=== PATIENT | female | born 1935 | race Caucasian/White ===

== ENCOUNTER 2017-07-10 20:54 | Emergency (ER) | payer MEDICARE, BC ==
[2017-07-10 22:01] LABS: BASO % 0.4 % (0.0-1.0); EOS # 0.3 10^3/uL (0.0-0.50); EOS % 2.7 % (0.0-3.0); HEMATOCRIT 39.1 % (36.0-47.0); HEMOGLOBIN 12.8 g/dl (12.0-15.5); IMMATURE GRANULOCYTE % 0.4 % (0-3.0); LYMPH # 3.2 10^3/uL (1.5-4.5); LYMPH % 34.7 % (24.0-44.0); MEAN CORPUSCULAR HEMOGLOBIN 27.5 pg (27.0-33.0); MEAN CORPUSCULAR HGB CONC 32.7 g/dl (32.0-36.5); MEAN CORPUSCULAR VOLUME 84.1 fl (80.0-96.0); MONO # 0.7 10^3/uL (0.0-0.8); MONO % 7.6 % (0.0-5.0); NEUTROPHILS % 54.2 % (36.0-66.0); PLATELET COUNT, AUTOMATED 236 10^3/uL (150-450); RED BLOOD COUNT 4.65 10^6/uL (4.00-5.40); RED CELL DISTRIBUTION WIDTH 13.2 % (11.5-14.5); WHITE BLOOD COUNT 9.2 10^3/uL (4.0-10.0)
[2017-07-10 22:11] LABS: INR 0.98; PROTHROMBIN TIME 13.1 SECONDS (12.4-14.5)
[2017-07-10 22:12] LABS: PARTIAL THROMBOPLASTIN TIME 33.8 SECONDS (26.8-37.9)
[2017-07-10 22:25] LABS: ALBUMIN 3.7 GM/DL (3.2-5.2); ALKALINE PHOSPHATASE 67 U/L (45-117); ALT/SGPT 30 U/L (12-78); ANION GAP 8 MEQ/L (8-16); AST/SGOT 20 U/L (7-37); BILIRUBIN,DIRECT < 0.1 MG/DL (0.0-0.2); BILIRUBIN,TOTAL 0.2 MG/DL (0.2-1.0); BLOOD UREA NITROGEN 19 MG/DL (7-18); CALCIUM LEVEL 8.6 MG/DL (8.8-10.2); CARBON DIOXIDE LEVEL 26 MEQ/L (21-32); CHLORIDE LEVEL 108 MEQ/L (98-107); CPK CREATINE PHOSPHOKINASE 87 U/L (26-192); CREATININE FOR GFR 1.03 MG/DL (0.55-1.30); FREE T4 1.12 NG/DL (0.76-1.46); GLUCOSE, FASTING 102 MG/DL (70-100); LIPASE 179 U/L (73-393); SODIUM LEVEL 142 MEQ/L (136-145); TOTAL PROTEIN 8.3 GM/DL (6.4-8.2); TROPONIN I < 0.02 NG/ML (< 0.10)
[2017-07-10] MEDS: MAALOX 30 ML SUSP *UDC PO (22:27)
[2017-07-10] MEDS: ASPIRIN 81 MG CHEW TABLET PO (22:27)
[2017-07-10 22:31] LABS: CK-MB VALUE MASS 1.5 NG/ML (<3.6); MB/CK RELATIVE INDEX 1.72 (< OR =4)
[2017-07-11] MEDS: NS 500 ML IV (04:15)
[2017-07-11 04:37] LABS: CK-MB VALUE MASS 1.2 NG/ML (<3.6); CPK CREATINE PHOSPHOKINASE 63 U/L (26-192); TROPONIN I < 0.02 NG/ML (< 0.10)
== END 2017-07-11 07:12 | disposition home or self-care (01) ==
LOC: M ED 20:54
DX: R07.9 Chest pain, unspecified (principal); R94.31 Abnormal electrocardiogram [ECG] [EKG]; I25.10 Atherosclerotic heart disease of native coronary artery without angina pectoris; K21.9 Gastro-esophageal reflux disease without esophagitis; Z87.891 Personal history of nicotine dependence; Z79.899 Other long term (current) drug therapy; Z88.8 Allergy status to other drugs, medicaments and biological substances
CPT/HCPCS: 71046

== ENCOUNTER 2018-05-09 14:18 | Emergency (ER) | payer MEDICARE, BC ==
[~2018-05-09] VITALS: Ht 147.3 cm; Wt 63.5 kg
[~2018-05-09 14:18] MED LIST: AMLO5TAB6; BISOPRL/HCTZ; KLOR10TA76; OMEP20CA3; PARO5TAB; PRAV20TA2; VALS1TAB68; ZETI10TA30 PO
[2018-05-09] MEDS ORDERED: BISOPRL/HCTZ (14:31)
[2018-05-09 15:53] LABS: BASO % 0.2 % (0.0-1.0); EOS # 0.4 10^3/uL (0.0-0.50); EOS % 3.9 % (0.0-3.0); HEMATOCRIT 41.7 % (36.0-47.0); HEMOGLOBIN 13.4 g/dl (12.0-15.5); LYMPH # 2.2 10^3/uL (1.5-4.5); LYMPH % 22.9 % (24.0-44.0); MEAN CORPUSCULAR HEMOGLOBIN 26.9 pg (27.0-33.0); MEAN CORPUSCULAR HGB CONC 32.1 g/dl (32.0-36.5); MEAN CORPUSCULAR VOLUME 83.6 fl (80.0-96.0); MONO # 0.7 10^3/uL (0.0-0.8); MONO % 7.2 % (0.0-5.0); NEUTROPHILS # 6.2 10^3/uL (1.8-7.7); NEUTROPHILS % 65.3 % (36.0-66.0); PLATELET COUNT, AUTOMATED 297 10^3/uL (150-450); RED BLOOD COUNT 4.99 10^6/uL (4.00-5.40); WHITE BLOOD COUNT 9.5 10^3/uL (4.0-10.0)
[2018-05-09] MEDS ORDERED: MORPHINE 2 MG/ML 1ML SYRINGE (J2270) IV ONE (16:15)
[2018-05-09 16:21] LABS: BLOOD UREA NITROGEN 17 MG/DL (7-18); CALCIUM LEVEL 9.1 MG/DL (8.8-10.2); CARBON DIOXIDE LEVEL 31 MEQ/L (21-32); CHLORIDE LEVEL 103 MEQ/L (98-107); CK-MB VALUE MASS < 1.0 NG/ML (<3.6); CPK CREATINE PHOSPHOKINASE 42 U/L (26-192); CREATININE FOR GFR 0.76 MG/DL (0.55-1.30); GLOMERULAR FILTRATION RATE > 60.0 (>32); GLUCOSE, FASTING 100 MG/DL (70-100); MB/CK RELATIVE INDEX 2.38 (< OR =4); POTASSIUM SERUM 3.7 MEQ/L (3.5-5.1); SODIUM LEVEL 139 MEQ/L (136-145); TROPONIN I < 0.02 NG/ML (< 0.10)
[2018-05-09] MEDS ORDERED: ISOVUE-370 76% 125ML VIAL (Q9967 PER ML) As Ordered ONE (16:30)
--- NOTE | 2018-05-09 17:36 | REP ---
Clinical: Chest pain radiating to the back. Technique: Chest CT using angiographic technique including multiplanar re-formations with 100 ml Isovue 370 intravenous contrast material. Findings: Thoracic aorta demonstrates mild atherosclerotic changes without aneurysm or dissection. Pulmonary arteries are intact without evidence for pulmonary embolus. Heart and pericardium are within normal limits. The bilateral lung cummings demonstrate advanced COPD/emphysematous changes. No consolidation, obvious nodule or mass lesion. No pleural effusion. No pneumothorax. No obvious adenopathy. Musculoskeletal structures demonstrate age-related osteopenia and degenerative changes along with vertebral body hemangioma at T9. Impression: 1. No evidence for thoracic aortic aneurysm or dissection. 2. No evidence for pulmonary embolus. 3. Advanced COPD/emphysematous changes. Electronically Signed by Tristin Mayes MD 05/09/2018 05:28 P
--- NOTE | 2018-05-09 17:39 | REP ---
Clinical: Chest and abdominal pain radiating to the back. Technique: Axial contrast enhanced images of the abdomen including multiplanar re-formations using angiographic technique with 100 ml Isovue 370 intravenous contrast material. Findings: Abdominal aorta demonstrates mild atherosclerotic changes without aneurysm or dissection. Celiac axis, superior mesenteric artery, inferior mesenteric artery, solitary bilateral renal arteries and lumbar arteries demonstrate normal perfusion. Liver, spleen, pancreas, bilateral adrenal glands and kidneys are relatively normal. The hypodensities are identified measuring up to 1.6 cm and compatible with cysts. Visualized enteric system without obstruction or acute inflammatory process. No ascites. No free air. No adenopathy. Osseous structures demonstrate age-related degenerative changes. Impression: 1. Atherosclerotic changes to the aorta without aneurysm or dissection. 2. Few bilateral renal hypodensities most compatible with cysts. 3. No acute abdominal pathology otherwise appreciated. Electronically Signed by Tristin Mayes MD 05/09/2018 05:31 P
[2018-05-09] MEDS ORDERED: ALPR0.25 PO (18:01)
[2018-05-09 18:22] VITALS: BP 152/70
--- NOTE | 2018-05-10 10:17 | ECGEPIP ---
Stationary ECG Study [facility] - ED Test Date: 2018-05-09 Pat Name: KAREN COBIAN Department: Room: - Gender: F Project Development Director: ct : 1935 Requested By: GUILLERMINA AGUILAR Order Number: [id number] Reading MD: Jodi Quinonez Measurements Intervals [place] Rate: 76 P: 98 VA: 193 QRS: -42 QRSD: 93 T: 61 QT: 370 QTc: 418 Interpretive Statements SINUS RHYTHM LOW QRS VOLTAGE IN EXTREMITY LEADS SEPTAL MYOCARDIAL INFARCTION, PROBABLY OLD INFERIOR MYOCARDIAL INFARCTION, PROBABLY OLD INCREASED RATE 07/11/17 Electronically Signed On 05-10-2018 10:17:40 EDT by Jodi Quinonez
== END 2018-05-09 18:23 | disposition home or self-care (01) ==
LOC: M ED 14:18
DX: M62.830 Muscle spasm of back (principal); J44.9 Chronic obstructive pulmonary disease, unspecified; Z79.899 Other long term (current) drug therapy; Z88.8 Allergy status to other drugs, medicaments and biological substances; Z87.891 Personal history of nicotine dependence
CPT/HCPCS: 71275; 74175; 80048; 82550; 82553; 84484; 85025; 93005; 96374; 99284; J2270; Q9967

== ENCOUNTER 2019-02-16 05:08 | Emergency (ER) | payer MEDICARE, BC ==
[~2019-02-16] VITALS: Ht 142.2 cm; Wt 73.6 kg
[~2019-02-16 05:08] MED LIST changes: +ALPR0.25 PO; +OMEP-172; -OMEP20CA3; +ZETI10TA16 PO; -ZETI10TA30 PO
[2019-02-16] MEDS ORDERED: METOCLOPRAMIDE INJ 10MG/2ML VIAL (J2765) As Ordered ONE (05:22)
[2019-02-16] MEDS ORDERED: BISO5TAB2 (05:34)
[2019-02-16] MEDS ORDERED: LOSA100T50 (05:34)
[2019-02-16] MEDS ORDERED: HALOPERIDOL 5 MG/ML VIAL (J1630) IV STA (05:48)
[2019-02-16] MEDS ORDERED: diphenhydrAMINE INJ 50MG/ML VIAL (J1200) IV STA (05:48)
[2019-02-16] MEDS ORDERED: METOCLOPRAMIDE INJ 10MG/2ML VIAL (J2765) IV ONE (06:00)
[2019-02-16] MEDS ORDERED: NS 500 ML IV ONE (06:00)
[2019-02-16 06:16] LABS: BASO # 0.1 10^3/uL (0.0-0.2); BASO % 0.4 % (0.0-1.0); EOS # 0.2 10^3/uL (0.0-0.5); EOS % 1.8 % (0.0-3.0); HEMATOCRIT 39.6 % (36.0-47.0); HEMOGLOBIN 12.2 g/dl (12.0-15.5); LYMPH # 4.2 10^3/uL (1.5-5.0); LYMPH % 37.2 % (24.0-44.0); MEAN CORPUSCULAR HEMOGLOBIN 26.2 pg (27.0-33.0); MEAN CORPUSCULAR HGB CONC 30.8 g/dl (32.0-36.5); MEAN CORPUSCULAR VOLUME 85.2 fl (80.0-96.0); MONO # 0.7 10^3/uL (0.0-0.8); MONO % 6.3 % (0.0-5.0); NEUTROPHILS % 53.8 % (36.0-66.0); PLATELET COUNT, AUTOMATED 265 10^3/uL (150-450); RED BLOOD COUNT 4.65 10^6/uL (4.00-5.40); WHITE BLOOD COUNT 11.2 10^3/uL (4.0-10.0)
[2019-02-16 06:43] LABS: ALBUMIN 3.2 GM/DL (3.2-5.2); ALT/SGPT 16 U/L (12-78); BILIRUBIN,DIRECT 0.1 MG/DL (0.0-0.2); BILIRUBIN,TOTAL 0.2 MG/DL (0.2-1.0); BLOOD UREA NITROGEN 17 MG/DL (7-18); CALCIUM LEVEL 8.6 MG/DL (8.8-10.2); CARBON DIOXIDE LEVEL 25 MEQ/L (21-32); CHLORIDE LEVEL 104 MEQ/L (98-107); CREATININE FOR GFR 0.86 MG/DL (0.55-1.30); GLOMERULAR FILTRATION RATE > 60.0 (>32); GLUCOSE, FASTING 119 MG/DL (70-100); LIPASE 115 U/L (73-393); POTASSIUM SERUM 3.5 MEQ/L (3.5-5.1); SODIUM LEVEL 138 MEQ/L (136-145); TOTAL PROTEIN 6.8 GM/DL (6.4-8.2)
[2019-02-16] MEDS ORDERED: REGL10TA6 PO (06:51)
[2019-02-16 07:24] VITALS: BP 139/65
--- NOTE | 2019-02-16 07:26 | REPVR ---
PROCEDURE INFORMATION: Exam: CT Head Without Contrast Exam date and time: 02/16/2019 6:10 AM Age: 83 years old Clinical indication: Dizziness TECHNIQUE: Imaging protocol: Computed tomography of the head without contrast. Radiation optimization: All CT scans at this facility use at least one of these dose optimization techniques: automated exposure control; mA and/or kV adjustment per patient size (includes targeted exams where dose is matched to clinical indication); or iterative reconstruction. COMPARISON: No relevant prior studies available. FINDINGS: Brain: There is mild, diffuse parenchymal volume loss. There is mild diffuse heterogeneity of the white matter attenuation, consistent with chronic white matter ischemic changes. There is no evidence of intracranial hemorrhage. The cortical/white matter interfaces are preserved throughout the brain. Ventricles: The ventricular system demonstrates mild diffuse compensatory enlargement. Bones/joints: No acute fractures of the skull are identified. Sinuses: The visualized paranasal sinuses are clear. Mastoid air cells: The mastoid air cells are clear. Soft tissues: The soft tissues appear unremarkable. Vasculature: Atherosclerotic calcifications are seen in the cerebral arteries at the skull base. IMPRESSION: 1. Age-appropriate, mild diffuse volume loss. 2. No evidence of acute infarct or hemorrhage. Electronically signed by: Radha Cuevas On 02/16/2019 07:26:21 AM
--- NOTE | 2019-02-16 09:08 | ECGEPIP ---
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
== END 2019-02-16 07:28 | disposition home or self-care (01) ==
LOC: M ED 05:08
DX: R42 Dizziness and giddiness (principal); R11.10 Vomiting, unspecified; I10 Essential (primary) hypertension; K21.9 Gastro-esophageal reflux disease without esophagitis; F41.9 Anxiety disorder, unspecified; F32.9 Major depressive disorder, single episode, unspecified; Z87.891 Personal history of nicotine dependence; Z79.899 Other long term (current) drug therapy; Z88.8 Allergy status to other drugs, medicaments and biological substances
CPT/HCPCS: 70450; 80048; 80076; 83690; 85025; 93005; 96374; 96375; 99284; J1200; J1630; J2765

== ENCOUNTER 2021-07-09 17:11 | Inpatient (IN) | payer MEDICARE, BC ==
[~2021-07-09] VITALS: Ht 147.3 cm; Wt 62.5 kg
[~2021-07-09 17:11] MED LIST changes: +AMLO1TAB24 PO; -AMLO5TAB6; +BISO1TAB18 PO; -KLOR10TA76; +LOSA100T45 PO; -OMEP-172; +OMEP1CAP73 PO; +POTA-136 PO; -PRAV20TA2; +PRAV20TA2 PO; +REGL10TA6 PO
[2021-07-09 19:01] LABS: VENOUS BASE EXCESS -0.8 (-2.0-2.0); VENOUS O2 SATURATION 69.1 % (60.0-80.0); VENOUS PARTIAL PRESSURE CO2 46.2 mmHg (38.0-50.0); VENOUS PARTIAL PRESSURE O2 38.2 mmHg (30.0-50.0); VENOUS PH 7.352 UNITS (7.330-7.430); VENOUS STANDARD HCO3 23.1 MEQ/L; VENOUS TOTAL CO2 26.5 MEQ/L (24.0-28.0)
[2021-07-09 19:14] LABS: BASO % 0.5 % (0.0-1.0); EOS # 0.2 10^3/uL (0.0-0.5); HEMATOCRIT 39.2 % (36.0-47.0); HEMOGLOBIN 12.5 g/dl (12.0-15.5); LYMPH # 2.9 10^3/uL (1.5-5.0); LYMPH % 35.8 % (24.0-44.0); MEAN CORPUSCULAR HEMOGLOBIN 27.1 pg (27.0-33.0); MEAN CORPUSCULAR HGB CONC 31.9 g/dl (32.0-36.5); MEAN CORPUSCULAR VOLUME 84.8 fl (80.0-96.0); MONO # 0.6 10^3/uL (0.0-0.8); MONO % 7.6 % (2.0-8.0); NEUTROPHILS # 4.3 10^3/uL (1.5-8.5); NEUTROPHILS % 53.6 % (36.0-66.0); PLATELET COUNT, AUTOMATED 281 10^3/uL (150-450); RED BLOOD COUNT 4.62 10^6/uL (4.00-5.40); WHITE BLOOD COUNT 8.1 10^3/uL (4.0-10.0)
[2021-07-09 19:15] LABS: CK-MB VALUE MASS 1.1 NG/ML (<3.6); MB/CK RELATIVE INDEX 3.14 (< OR =4)
[2021-07-09 19:22] LABS: ALBUMIN 3.5 GM/DL (3.2-5.2); BILIRUBIN,DIRECT 0.2 MG/DL (0.0-0.2); BILIRUBIN,TOTAL 0.4 MG/DL (0.2-1.0); CALCIUM LEVEL 8.8 MG/DL (8.8-10.2); CREATININE FOR GFR 0.95 MG/DL (0.55-1.30); GLOMERULAR FILTRATION RATE 59.8 (>32); POTASSIUM SERUM 4.1 MEQ/L (3.5-5.1); THYROID STIMULATING HORMONE 2.92 uIU/ML (0.358-3.740); TOTAL PROTEIN 7.1 GM/DL (6.4-8.2)
[2021-07-09 19:28] LABS: INR 1.06; PROTHROMBIN TIME 14.2 SECONDS (12.7-14.5)
[2021-07-09 19:29] LABS: PARTIAL THROMBOPLASTIN TIME 32.8 SECONDS (25.9-37.0)
[2021-07-09] MEDS ORDERED: MOM 30ML SUSPENSION UDC PO PRN (21:30)
[2021-07-09] MEDS ORDERED: MAALOX 30 ML SUSP *UDC PO PRN (21:30)
[2021-07-09] MEDS ORDERED: PARO10TA3 PO (21:33)
[2021-07-09] MEDS: FUROSEMIDE 40MG/4ML VIAL (J1940) IV SCH (21:35)
[2021-07-09] MEDS ORDERED: med rec comment (21:35)
[2021-07-09] MEDS ORDERED: ISOVUE-370 76% 100ML VIAL As Ordered ONE (21:38)
[2021-07-09] MEDS ORDERED: HOME MED LIST COMPLETE! XX SCH (21:40)
[2021-07-09 23:33] LABS: CK-MB VALUE MASS < 1.0 NG/ML (<3.6); CPK CREATINE PHOSPHOKINASE 35 U/L (26-192); MB/CK RELATIVE INDEX 2.86 (< OR =4)
[2021-07-09] MEDS: APIXABAN 5 MG TAB (ELIQUIS) PO SCH (23:34)
[2021-07-10] MEDS ORDERED: predniSONE 20 MG TAB PO SCH (00:20)
[2021-07-10] MEDS ORDERED: REMDESIVIR 200 MG in NS 250 ML IV ONE ×2 (03:00→10:05)
[2021-07-10] MEDS ORDERED: SODIUM CHLORIDE 0.9% INJ 10 ML SYR IV ONE ×2 (05:00→12:05)
[2021-07-10 07:29] LABS: BASO # 0.1 10^3/uL (0.0-0.2); BASO % 0.5 % (0.0-1.0); EOS # 0.2 10^3/uL (0.0-0.5); EOS % 1.7 % (0.0-3.0); HEMATOCRIT 38.9 % (36.0-47.0); HEMOGLOBIN 12.4 g/dl (12.0-15.5); LYMPH # 4.6 10^3/uL (1.5-5.0); LYMPH % 41.7 % (24.0-44.0); MEAN CORPUSCULAR HEMOGLOBIN 27.1 pg (27.0-33.0); MEAN CORPUSCULAR HGB CONC 31.9 g/dl (32.0-36.5); MEAN CORPUSCULAR VOLUME 85.1 fl (80.0-96.0); MONO # 0.8 10^3/uL (0.0-0.8); MONO % 7.4 % (2.0-8.0); NEUTROPHILS # 5.3 10^3/uL (1.5-8.5); NEUTROPHILS % 48.3 % (36.0-66.0); PLATELET COUNT, AUTOMATED 281 10^3/uL (150-450); RED BLOOD COUNT 4.57 10^6/uL (4.00-5.40); WHITE BLOOD COUNT 10.9 10^3/uL (4.0-10.0)
[2021-07-10 08:19] LABS: ALBUMIN 3.3 GM/DL (3.2-5.2); BILIRUBIN,TOTAL 0.3 MG/DL (0.2-1.0); CALCIUM LEVEL 9.3 MG/DL (8.8-10.2); CREATININE FOR GFR 0.95 MG/DL (0.55-1.30); GLOMERULAR FILTRATION RATE 59.8 (>32); MAGNESIUM LEVEL 1.9 MG/DL (1.8-2.4); TOTAL PROTEIN 6.9 GM/DL (6.4-8.2)
[2021-07-10] MEDS ORDERED: HYDROCHLOROthiazide 6.25MG PER 1/4TAB PO SCH (09:00)
[2021-07-10] MEDS ORDERED: LOSARTAN 50MG TABLET PO SCH (09:00)
[2021-07-10] MEDS ORDERED: bisoproloL fumarate 5 MG TAB PO SCH (09:00)
[2021-07-10] MEDS ORDERED: amLODIPine 5 MG TAB PO SCH (09:00)
[2021-07-10] MEDS ORDERED: POTASSIUM CHLORIDE 10MEQ SR TABLET PO SCH (09:00)
[2021-07-10] MEDS ORDERED: CARVedilol 12.5 MG TAB PO SCH (10:00)
[2021-07-10] MEDS: APIXABAN 5 MG TAB (ELIQUIS) PO SCH ×2 (10:34→22:38)
[2021-07-10] MEDS: PARoxetine 10MG TABLET PO SCH (10:35)
[2021-07-10] MEDS: PRAVASTATIN 20 MG TAB PO SCH (10:35)
[2021-07-10] MEDS: EZETIMIBE 10MG TABLET (ZETIA) PO SCH (10:35)
[2021-07-10] MEDS: OMEPRAZOLE 20MG CAP PO SCH (10:35)
[2021-07-10] MEDS: FUROSEMIDE 40MG/4ML VIAL (J1940) IV SCH ×2 (10:35→17:41)
[2021-07-10] MEDS: CARVedilol 12.5 MG TAB PO SCH ×2 (11:15→22:39)
[2021-07-10] MEDS: MIDODRINE 5 MG TAB PO SCH ×2 (12:38→16:00)
[2021-07-10 16:50] VITALS: BP 143/73
[2021-07-10 19:00] VITALS: O2SAT 94
[2021-07-10 20:00] VITALS: BP 119/65; O2SAT 94
[2021-07-10 21:00] VITALS: O2SAT 94
[2021-07-10 22:00] VITALS: O2SAT 92
[2021-07-10 23:00] VITALS: O2SAT 94
[2021-07-11] VITALS (28 sets, daily range): BP systolic 89–126; BP diastolic 50–74; O2SAT 89–98
[2021-07-11] MEDS ORDERED: REMDESIVIR 100 MG in NS 250 ML IV SCH (03:00)
[2021-07-11] MEDS ORDERED: SODIUM CHLORIDE 0.9% INJ 10 ML SYR IV SCH (04:00)
[2021-07-11] MEDS ORDERED: DIGOXIN INJ 0.5 MG/2 ML AMP (J1160) IV STA (07:16)
[2021-07-11] MEDS ORDERED: AMIODARONE 150MG/3ML INJ (J0282) IVP STA (08:03)
[2021-07-11] MEDS ORDERED: AMIODARONE HCL 150 MG in IV 1 EA IV ONE (08:10)
[2021-07-11] MEDS: MIDODRINE 5 MG TAB PO SCH ×3 (08:51→18:06)
[2021-07-11] MEDS: PARoxetine 10MG TABLET PO SCH (08:52)
[2021-07-11] MEDS: APIXABAN 5 MG TAB (ELIQUIS) PO SCH ×2 (08:52→21:26)
[2021-07-11] MEDS: OMEPRAZOLE 20MG CAP PO SCH (08:52)
[2021-07-11] MEDS: EZETIMIBE 10MG TABLET (ZETIA) PO SCH (08:52)
[2021-07-11] MEDS: PRAVASTATIN 20 MG TAB PO SCH (08:53)
[2021-07-11] MEDS: REMDESIVIR 100 MG in NS 250 ML IV SCH (08:54)
[2021-07-11] MEDS: SODIUM CHLORIDE 0.9% INJ 10 ML SYR IV SCH (10:20)
[2021-07-11] MEDS: CARVedilol 6.25 MG TAB PO SCH ×2 (12:28→21:27)
[2021-07-11] MEDS: ALPRAZolam 0.5 MG TAB PO PRN (13:06)
[2021-07-11] MEDS: LEVALBUTEROL 1.25 MG/0.5 ML CONCENTRATE NEB INH PRN (18:06)
[2021-07-11] MEDS: LEVALBUTEROL 1.25 MG/0.5 ML CONCENTRATE NEB INH SCH ×2 (21:02→23:35)
[2021-07-12] VITALS (11 sets, daily range): BP systolic 93–126; BP diastolic 50–65; O2SAT 93–96
[2021-07-12] MEDS: LEVALBUTEROL 1.25 MG/0.5 ML CONCENTRATE NEB INH SCH ×5 (03:27→20:00)
[2021-07-12] MEDS ORDERED: DIGOXIN INJ 0.5 MG/2 ML AMP (J1160) IV ONE (07:35)
[2021-07-12] MEDS ORDERED: MIDODRINE 5 MG TAB PO ONE (08:00)
[2021-07-12] MEDS: EZETIMIBE 10MG TABLET (ZETIA) PO SCH (08:10)
[2021-07-12] MEDS: PRAVASTATIN 20 MG TAB PO SCH (08:10)
[2021-07-12] MEDS: OMEPRAZOLE 20MG CAP PO SCH (08:10)
[2021-07-12 08:11] LABS: BASO % 0.3 % (0.0-1.0); EOS # 0.3 10^3/uL (0.0-0.5); EOS % 3.5 % (0.0-3.0); HEMATOCRIT 40.4 % (36.0-47.0); HEMOGLOBIN 12.7 g/dl (12.0-15.5); LYMPH # 3.3 10^3/uL (1.5-5.0); MEAN CORPUSCULAR HEMOGLOBIN 26.7 pg (27.0-33.0); MEAN CORPUSCULAR HGB CONC 31.4 g/dl (32.0-36.5); MEAN CORPUSCULAR VOLUME 84.9 fl (80.0-96.0); MONO # 0.8 10^3/uL (0.0-0.8); MONO % 8.2 % (2.0-8.0); NEUTROPHILS % 52.7 % (36.0-66.0); PLATELET COUNT, AUTOMATED 287 10^3/uL (150-450); RED BLOOD COUNT 4.76 10^6/uL (4.00-5.40); WHITE BLOOD COUNT 9.5 10^3/uL (4.0-10.0)
[2021-07-12] MEDS: PARoxetine 10MG TABLET PO SCH (08:11)
[2021-07-12] MEDS: APIXABAN 5 MG TAB (ELIQUIS) PO SCH ×2 (08:11→21:06)
[2021-07-12] MEDS: REMDESIVIR 100 MG in NS 250 ML IV SCH (08:12)
[2021-07-12] MEDS: CARVedilol 6.25 MG TAB PO SCH ×2 (08:27→21:06)
[2021-07-12 08:33] LABS: BLOOD UREA NITROGEN 30 MG/DL (7-18); CALCIUM LEVEL 9.4 MG/DL (8.8-10.2); CARBON DIOXIDE LEVEL 31 MEQ/L (21-32); CHLORIDE LEVEL 103 MEQ/L (98-107); CREATININE FOR GFR 0.93 MG/DL (0.55-1.30); GLOMERULAR FILTRATION RATE > 60.0 (>32); GLUCOSE, FASTING 91 MG/DL (70-100); POTASSIUM SERUM 3.9 MEQ/L (3.5-5.1); SODIUM LEVEL 142 MEQ/L (136-145)
[2021-07-12] MEDS: SODIUM CHLORIDE 0.9% INJ 10 ML SYR IV SCH (09:41)
[2021-07-12] MEDS: MIDODRINE 5 MG TAB PO SCH (16:57)
[2021-07-12] MEDS: LEVALBUTEROL 1.25 MG/0.5 ML CONCENTRATE NEB INH PRN (21:20)
[2021-07-13] VITALS: O2SAT 94
[2021-07-13] MEDS: LEVALBUTEROL 1.25 MG/0.5 ML CONCENTRATE NEB INH SCH ×6 (01:15→21:21)
[2021-07-13 04:33] VITALS: BP 116/63
[2021-07-13 07:14] LABS: BASO % 0.2 % (0.0-1.0); EOS # 0.3 10^3/uL (0.0-0.5); EOS % 3.2 % (0.0-3.0); HEMOGLOBIN 11.8 g/dl (12.0-15.5); LYMPH % 35.7 % (24.0-44.0); MEAN CORPUSCULAR HEMOGLOBIN 27.2 pg (27.0-33.0); MEAN CORPUSCULAR HGB CONC 31.9 g/dl (32.0-36.5); MEAN CORPUSCULAR VOLUME 85.3 fl (80.0-96.0); MONO # 0.9 10^3/uL (0.0-0.8); MONO % 10.9 % (2.0-8.0); NEUTROPHILS # 4.2 10^3/uL (1.5-8.5); NEUTROPHILS % 49.6 % (36.0-66.0); PLATELET COUNT, AUTOMATED 246 10^3/uL (150-450); RED BLOOD COUNT 4.34 10^6/uL (4.00-5.40); WHITE BLOOD COUNT 8.4 10^3/uL (4.0-10.0)
[2021-07-13 08:09] LABS: BLOOD UREA NITROGEN 31 MG/DL (7-18); CALCIUM LEVEL 9.1 MG/DL (8.8-10.2); CARBON DIOXIDE LEVEL 32 MEQ/L (21-32); CHLORIDE LEVEL 106 MEQ/L (98-107); CREATININE FOR GFR 0.86 MG/DL (0.55-1.30); DIGOXIN LEVEL 0.6 NG/ML (0.5-2.0); GLOMERULAR FILTRATION RATE > 60.0 (>32); GLUCOSE, FASTING 89 MG/DL (70-100); POTASSIUM SERUM 3.7 MEQ/L (3.5-5.1); SODIUM LEVEL 143 MEQ/L (136-145)
[2021-07-13] MEDS: APIXABAN 5 MG TAB (ELIQUIS) PO SCH ×2 (09:27→19:53)
[2021-07-13] MEDS: CARVedilol 6.25 MG TAB PO SCH ×2 (09:28→19:54)
[2021-07-13] MEDS: OMEPRAZOLE 20MG CAP PO SCH (09:28)
[2021-07-13] MEDS: PRAVASTATIN 20 MG TAB PO SCH (09:28)
[2021-07-13] MEDS: EZETIMIBE 10MG TABLET (ZETIA) PO SCH (09:28)
[2021-07-13] MEDS: MIDODRINE 5 MG TAB PO SCH ×3 (09:29→15:53)
[2021-07-13] MEDS: PARoxetine 10MG TABLET PO SCH (09:29)
[2021-07-13 11:42] VITALS: O2SAT 90; O2SAT 93
[2021-07-13 12:00] VITALS: BP 122/59
[2021-07-13 15:52] VITALS: BP 143/83
[2021-07-13] MEDS: ALPRAZolam 0.5 MG TAB PO PRN (15:53)
[2021-07-13 20:00] VITALS: BP 125/70
[2021-07-14] VITALS (7 sets, daily range): BP systolic 122–154; BP diastolic 61–71; O2SAT 93–96
[2021-07-14] MEDS: LEVALBUTEROL 1.25 MG/0.5 ML CONCENTRATE NEB INH SCH ×7 (00:36→23:54)
[2021-07-14 06:13] LABS: BASO % 0.3 % (0.0-1.0); EOS # 0.2 10^3/uL (0.0-0.5); EOS % 2.3 % (0.0-3.0); HEMOGLOBIN 11.1 g/dl (12.0-15.5); LYMPH % 34.2 % (24.0-44.0); MEAN CORPUSCULAR HEMOGLOBIN 26.5 pg (27.0-33.0); MEAN CORPUSCULAR HGB CONC 30.8 g/dl (32.0-36.5); MEAN CORPUSCULAR VOLUME 85.9 fl (80.0-96.0); MONO # 1.1 10^3/uL (0.0-0.8); MONO % 12.3 % (2.0-8.0); NEUTROPHILS # 4.4 10^3/uL (1.5-8.5); NEUTROPHILS % 50.7 % (36.0-66.0); PLATELET COUNT, AUTOMATED 232 10^3/uL (150-450); RED BLOOD COUNT 4.19 10^6/uL (4.00-5.40); WHITE BLOOD COUNT 8.7 10^3/uL (4.0-10.0)
[2021-07-14 06:40] LABS: BLOOD UREA NITROGEN 24 MG/DL (7-18); CALCIUM LEVEL 8.9 MG/DL (8.8-10.2); CARBON DIOXIDE LEVEL 32 MEQ/L (21-32); CHLORIDE LEVEL 108 MEQ/L (98-107); CREATININE FOR GFR 0.74 MG/DL (0.55-1.30); GLOMERULAR FILTRATION RATE > 60.0 (>32); GLUCOSE, FASTING 88 MG/DL (70-100); MAGNESIUM LEVEL 1.9 MG/DL (1.8-2.4); POTASSIUM SERUM 3.7 MEQ/L (3.5-5.1); SODIUM LEVEL 142 MEQ/L (136-145)
[2021-07-14] MEDS: OMEPRAZOLE 20MG CAP PO SCH (08:54)
[2021-07-14] MEDS: MIDODRINE 5 MG TAB PO SCH ×3 (08:55→16:00)
[2021-07-14] MEDS: CARVedilol 6.25 MG TAB PO SCH ×2 (08:55→20:03)
[2021-07-14] MEDS: PARoxetine 10MG TABLET PO SCH (08:55)
[2021-07-14] MEDS: EZETIMIBE 10MG TABLET (ZETIA) PO SCH (08:56)
[2021-07-14] MEDS: APIXABAN 5 MG TAB (ELIQUIS) PO SCH ×2 (08:56→20:03)
[2021-07-14] MEDS: PRAVASTATIN 20 MG TAB PO SCH (08:56)
[2021-07-14] MEDS: ACETAMINOPHEN TAB 650MG DOSE (2X325MG) PO PRN (20:04)
[2021-07-14] MEDS: ALPRAZolam 0.25 MG TAB PO PRN (20:04)
[2021-07-15] VITALS (8 sets, daily range): BP systolic 114–152; BP diastolic 56–73; O2SAT 92–94
[2021-07-15] MEDS: LEVALBUTEROL 1.25 MG/0.5 ML CONCENTRATE NEB INH SCH ×5 (04:29→20:51)
[2021-07-15 07:46] LABS: BASO % 0.4 % (0.0-1.0); EOS # 0.2 10^3/uL (0.0-0.5); EOS % 2.3 % (0.0-3.0); HEMATOCRIT 34.4 % (36.0-47.0); HEMOGLOBIN 10.8 g/dl (12.0-15.5); LYMPH % 37.4 % (24.0-44.0); MEAN CORPUSCULAR HGB CONC 31.4 g/dl (32.0-36.5); MONO % 12.3 % (2.0-8.0); NEUTROPHILS # 3.8 10^3/uL (1.5-8.5); NEUTROPHILS % 47.2 % (36.0-66.0); PLATELET COUNT, AUTOMATED 215 10^3/uL (150-450); WHITE BLOOD COUNT 8.1 10^3/uL (4.0-10.0)
[2021-07-15 08:06] LABS: BLOOD UREA NITROGEN 18 MG/DL (7-18); CALCIUM LEVEL 8.3 MG/DL (8.8-10.2); CARBON DIOXIDE LEVEL 31 MEQ/L (21-32); CHLORIDE LEVEL 105 MEQ/L (98-107); CREATININE FOR GFR 0.68 MG/DL (0.55-1.30); GLOMERULAR FILTRATION RATE > 60.0 (>32); GLUCOSE, FASTING 85 MG/DL (70-100); MAGNESIUM LEVEL 1.9 MG/DL (1.8-2.4); POTASSIUM SERUM 3.4 MEQ/L (3.5-5.1); SODIUM LEVEL 139 MEQ/L (136-145)
[2021-07-15] MEDS: OMEPRAZOLE 20MG CAP PO SCH (09:26)
[2021-07-15] MEDS: MIDODRINE 5 MG TAB PO SCH ×3 (09:27→17:00)
[2021-07-15] MEDS: APIXABAN 5 MG TAB (ELIQUIS) PO SCH ×2 (09:27→21:01)
[2021-07-15] MEDS: PRAVASTATIN 20 MG TAB PO SCH (09:27)
[2021-07-15] MEDS: CARVedilol 6.25 MG TAB PO SCH ×2 (09:28→21:01)
[2021-07-15] MEDS: EZETIMIBE 10MG TABLET (ZETIA) PO SCH (09:28)
[2021-07-15] MEDS: PARoxetine 10MG TABLET PO SCH (09:30)
[2021-07-15] MEDS: ACETAMINOPHEN TAB 650MG DOSE (2X325MG) PO PRN (09:44)
[2021-07-15] MEDS: ALPRAZolam 0.25 MG TAB PO PRN (09:44)
[2021-07-16] MEDS: LEVALBUTEROL 1.25 MG/0.5 ML CONCENTRATE NEB INH SCH ×4 (01:31→11:31)
[2021-07-16] MEDS: ALPRAZolam 0.25 MG TAB PO PRN (01:47)
[2021-07-16 04:32] VITALS: BP 128/60
[2021-07-16 06:13] LABS: BASO % 0.4 % (0.0-1.0); EOS # 0.3 10^3/uL (0.0-0.5); EOS % 3.3 % (0.0-3.0); HEMATOCRIT 33.3 % (36.0-47.0); HEMOGLOBIN 10.5 g/dl (12.0-15.5); LYMPH # 3.2 10^3/uL (1.5-5.0); LYMPH % 34.4 % (24.0-44.0); MEAN CORPUSCULAR HEMOGLOBIN 27.1 pg (27.0-33.0); MEAN CORPUSCULAR HGB CONC 31.5 g/dl (32.0-36.5); MEAN CORPUSCULAR VOLUME 85.8 fl (80.0-96.0); MONO # 0.7 10^3/uL (0.0-0.8); MONO % 7.9 % (2.0-8.0); NEUTROPHILS % 53.7 % (36.0-66.0); PLATELET COUNT, AUTOMATED 223 10^3/uL (150-450); RED BLOOD COUNT 3.88 10^6/uL (4.00-5.40); WHITE BLOOD COUNT 9.4 10^3/uL (4.0-10.0)
[2021-07-16 06:38] LABS: BLOOD UREA NITROGEN 19 MG/DL (7-18); CALCIUM LEVEL 8.8 MG/DL (8.8-10.2); CARBON DIOXIDE LEVEL 32 MEQ/L (21-32); CHLORIDE LEVEL 107 MEQ/L (98-107); CREATININE FOR GFR 0.71 MG/DL (0.55-1.30); GLOMERULAR FILTRATION RATE > 60.0 (>32); GLUCOSE, FASTING 89 MG/DL (70-100); POTASSIUM SERUM 3.8 MEQ/L (3.5-5.1); SODIUM LEVEL 142 MEQ/L (136-145)
[2021-07-16] MEDS: MIDODRINE 5 MG TAB PO SCH ×2 (08:56→12:00)
[2021-07-16] MEDS: OMEPRAZOLE 20MG CAP PO SCH (08:56)
[2021-07-16] MEDS: APIXABAN 5 MG TAB (ELIQUIS) PO SCH (08:56)
[2021-07-16] MEDS: PARoxetine 10MG TABLET PO SCH (08:56)
[2021-07-16] MEDS: EZETIMIBE 10MG TABLET (ZETIA) PO SCH (08:56)
[2021-07-16] MEDS: PRAVASTATIN 20 MG TAB PO SCH (08:56)
[2021-07-16 08:57] VITALS: BP 116/56
[2021-07-16] MEDS: CARVedilol 6.25 MG TAB PO SCH (08:57)
[2021-07-16] MEDS ORDERED: CARV6.25 PO (12:02)
[2021-07-16] MEDS ORDERED: MIDO5TA PO ×2 (12:02→12:16)
[2021-07-16] MEDS ORDERED: ALPR0.25 PO (12:02)
[2021-07-16] MEDS ORDERED: ELIQ5TAB PO (12:02)
[2021-07-16] MEDS ORDERED: LEVA1.25 INH (12:20)
[2021-07-16 12:44] VITALS: BP 137/62
[2021-07-16] MEDS ORDERED: ALBU2.5V10 NEB (14:19)
== END 2021-07-16 15:10 | disposition home health service (06) | DRG 308 ==
LOC: M ED 17:11 → M ED INP 21:37 → ENRESERV 07-10 14:30 → M 4MAIN 07-10 16:50
PROVIDERS: ADMIT Family Medicine; ATTEND Family Medicine
DX: I48.91 Unspecified atrial fibrillation (principal); U07.1 COVID-19; I50.31 Acute diastolic (congestive) heart failure; J44.1 Chronic obstructive pulmonary disease with (acute) exacerbation; I11.0 Hypertensive heart disease with heart failure; K21.9 Gastro-esophageal reflux disease without esophagitis; K22.70 Barrett's esophagus without dysplasia; Z79.899 Other long term (current) drug therapy; Z88.8 Allergy status to other drugs, medicaments and biological substances; Z87.891 Personal history of nicotine dependence; Z79.01 Long term (current) use of anticoagulants; M40.204 Unspecified kyphosis, thoracic region; I95.2 Hypotension due to drugs; F41.9 Anxiety disorder, unspecified; F32.A Depression, unspecified; E78.5 Hyperlipidemia, unspecified

== ENCOUNTER 2021-07-20 08:54 | Inpatient (IN) | payer MEDICARE, BC ==
[~2021-07-20] VITALS: Ht 147.3 cm; Wt 59.1 kg
[~2021-07-20 08:54] MED LIST changes: +ALBU2.5V10 NEB; +CARV6.25 PO; +ELIQ5TAB PO; +LEVA1.25 INH; +MIDO5TA PO; +PARO10TA3 PO; +med rec comment
[2021-07-20 09:32] LABS: VENOUS BASE EXCESS 3.8 (-2.0-2.0); VENOUS HCO3 31.3 MEQ/L (23.0-27.0); VENOUS O2 SATURATION 77.2 % (60.0-80.0); VENOUS PARTIAL PRESSURE CO2 61.8 mmHg (38.0-50.0); VENOUS PARTIAL PRESSURE O2 43.6 mmHg (30.0-50.0); VENOUS PH 7.323 UNITS (7.330-7.430); VENOUS STANDARD HCO3 27.4 MEQ/L; VENOUS TOTAL CO2 33.2 MEQ/L (24.0-28.0)
[2021-07-20] MEDS ORDERED: FUROSEMIDE 40MG/4ML VIAL (J1940) IV ONE (09:35)
[2021-07-20 09:37] LABS: BASO % 0.5 % (0.0-1.0); EOS # 0.3 10^3/uL (0.0-0.5); EOS % 3.3 % (0.0-3.0); HEMATOCRIT 36.6 % (36.0-47.0); HEMOGLOBIN 11.3 g/dl (12.0-15.5); LYMPH # 2.9 10^3/uL (1.5-5.0); LYMPH % 36.8 % (24.0-44.0); MEAN CORPUSCULAR HEMOGLOBIN 26.8 pg (27.0-33.0); MEAN CORPUSCULAR HGB CONC 30.9 g/dl (32.0-36.5); MEAN CORPUSCULAR VOLUME 86.7 fl (80.0-96.0); MONO # 0.6 10^3/uL (0.0-0.8); MONO % 7.8 % (2.0-8.0); NEUTROPHILS % 51.1 % (36.0-66.0); PLATELET COUNT, AUTOMATED 264 10^3/uL (150-450); RED BLOOD COUNT 4.22 10^6/uL (4.00-5.40); WHITE BLOOD COUNT 7.8 10^3/uL (4.0-10.0)
[2021-07-20 10:18] LABS: ALT/SGPT 21 U/L (12-78); BILIRUBIN,DIRECT 0.1 MG/DL (0.0-0.2); BILIRUBIN,TOTAL 0.4 MG/DL (0.2-1.0); BLOOD UREA NITROGEN 12 MG/DL (7-18); CALCIUM LEVEL 8.7 MG/DL (8.8-10.2); CARBON DIOXIDE LEVEL 33 MEQ/L (21-32); CHLORIDE LEVEL 106 MEQ/L (98-107); CREATININE FOR GFR 0.83 MG/DL (0.55-1.30); GLOMERULAR FILTRATION RATE > 60.0 (>32); GLUCOSE, FASTING 101 MG/DL (70-100); NT-PRO BNP 1198 PG/ML (<450); POTASSIUM SERUM 4.3 MEQ/L (3.5-5.1); SODIUM LEVEL 142 MEQ/L (136-145); TOTAL PROTEIN 6.5 GM/DL (6.4-8.2)
[2021-07-20] MEDS ORDERED: ALPRAZolam 0.25 MG TAB PO ONE (11:00)
[2021-07-20] MEDS ORDERED: CARV6.25 PO (11:44)
[2021-07-20] MEDS ORDERED: MAGN64TASA PO (11:44)
[2021-07-20] MEDS ORDERED: ALPR0.25 PO (11:44)
[2021-07-20] MEDS ORDERED: ALBU2.5V10 INH (11:44)
[2021-07-20] MEDS ORDERED: ELIQ5TAB PO (11:44)
[2021-07-20] MEDS ORDERED: ACET1TAB55 PO (11:46)
[2021-07-20] MEDS ORDERED: HOME MED LIST COMPLETE! XX SCH (11:50)
[2021-07-20] MEDS ORDERED: MAALOX 30 ML SUSP *UDC PO PRN (14:50)
[2021-07-20] MEDS ORDERED: ACETAMINOPHEN TAB 650MG DOSE (2X325MG) PO PRN (14:50)
[2021-07-20] MEDS ORDERED: CARVedilol 12.5 MG TAB PO ONE (16:55)
[2021-07-20] MEDS: methylPREDNISolone 40MG 1ML VIAL IV SCH (17:01)
[2021-07-20] MEDS: FUROSEMIDE 40MG/4ML VIAL (J1940) IV SCH (17:01)
[2021-07-20 17:27] VITALS: BP 145/80
[2021-07-20 17:30] VITALS: O2SAT 92
[2021-07-20] MEDS ORDERED: BACLOFEN 10 MG TAB PO ONE (18:30)
[2021-07-20] MEDS: IPRATROPIUM 0.5MG/ALBUTEROL 2.5MG INH SOL UD 3ML (DUONEB) NEB SCH (19:39)
[2021-07-20] MEDS: POTASSIUM CHLORIDE 10MEQ SR TABLET PO SCH (20:23)
[2021-07-20] MEDS: APIXABAN 5 MG TAB (ELIQUIS) PO SCH (20:23)
[2021-07-20 21:44] VITALS: O2SAT 91
[2021-07-20 22:00] VITALS: BP 134/82
[2021-07-20] MEDS: ALPRAZolam 0.25 MG TAB PO PRN (22:26)
[2021-07-21] MEDS: methylPREDNISolone 40MG 1ML VIAL IV SCH ×3 (00:27→16:10)
[2021-07-21] MEDS: FUROSEMIDE 40MG/4ML VIAL (J1940) IV SCH ×3 (00:27→16:10)
[2021-07-21] MEDS: IPRATROPIUM 0.5MG/ALBUTEROL 2.5MG INH SOL UD 3ML (DUONEB) NEB SCH ×4 (02:00→19:41)
[2021-07-21 06:00] VITALS: BP 137/68
[2021-07-21] MEDS: OMEPRAZOLE 20MG CAP PO SCH (09:09)
[2021-07-21] MEDS: EZETIMIBE 10MG TABLET (ZETIA) PO SCH (09:09)
[2021-07-21] MEDS: APIXABAN 5 MG TAB (ELIQUIS) PO SCH ×2 (09:10→20:25)
[2021-07-21] MEDS: PRAVASTATIN 20 MG TAB PO SCH (09:10)
[2021-07-21] MEDS: PARoxetine 10MG TABLET PO SCH (09:10)
[2021-07-21] MEDS: POTASSIUM CHLORIDE 10MEQ SR TABLET PO SCH ×2 (09:10→20:25)
[2021-07-21 09:11] LABS: BASO % 0.1 % (0.0-1.0); HEMATOCRIT 36.1 % (36.0-47.0); HEMOGLOBIN 11.4 g/dl (12.0-15.5); LYMPH # 0.9 10^3/uL (1.5-5.0); LYMPH % 10.2 % (24.0-44.0); MEAN CORPUSCULAR HGB CONC 31.6 g/dl (32.0-36.5); MEAN CORPUSCULAR VOLUME 85.5 fl (80.0-96.0); MONO # 0.1 10^3/uL (0.0-0.8); MONO % 1.1 % (2.0-8.0); NEUTROPHILS # 8.1 10^3/uL (1.5-8.5); NEUTROPHILS % 88.2 % (36.0-66.0); PLATELET COUNT, AUTOMATED 256 10^3/uL (150-450); RED BLOOD COUNT 4.22 10^6/uL (4.00-5.40); WHITE BLOOD COUNT 9.2 10^3/uL (4.0-10.0)
[2021-07-21] MEDS: amLODIPine 5 MG TAB PO SCH (09:12)
[2021-07-21 09:48] LABS: ALT/SGPT 24 U/L (12-78); BILIRUBIN,TOTAL 0.4 MG/DL (0.2-1.0); BLOOD UREA NITROGEN 18 MG/DL (7-18); CALCIUM LEVEL 8.7 MG/DL (8.8-10.2); CARBON DIOXIDE LEVEL 35 MEQ/L (21-32); CHLORIDE LEVEL 100 MEQ/L (98-107); CREATININE FOR GFR 0.86 MG/DL (0.55-1.30); GLOMERULAR FILTRATION RATE > 60.0 (>32); GLUCOSE, FASTING 151 MG/DL (70-100); POTASSIUM SERUM 3.6 MEQ/L (3.5-5.1); SODIUM LEVEL 140 MEQ/L (136-145); TOTAL PROTEIN 7.1 GM/DL (6.4-8.2)
[2021-07-21] MEDS: TIOTROPIUM INHALER/CAPSULE (SPIRIVA) INH SCH (12:15)
[2021-07-21] MEDS: SYMBICORT 160/4.5MCG INHALER 6GM INH SCH ×2 (12:15→19:41)
[2021-07-21] MEDS: CARVedilol 6.25 MG TAB PO SCH ×2 (12:26→20:25)
[2021-07-21 14:00] VITALS: BP 125/67
[2021-07-21] MEDS: ALPRAZolam 0.25 MG TAB PO PRN (16:10)
[2021-07-22] MEDS: FUROSEMIDE 40MG/4ML VIAL (J1940) IV SCH ×3 (01:20→17:48)
[2021-07-22] MEDS: methylPREDNISolone 40MG 1ML VIAL IV SCH ×3 (01:20→17:48)
[2021-07-22] MEDS: IPRATROPIUM 0.5MG/ALBUTEROL 2.5MG INH SOL UD 3ML (DUONEB) NEB SCH ×4 (01:50→19:27)
[2021-07-22 06:00] VITALS: BP 128/58
[2021-07-22 06:27] LABS: BASO % 0.1 % (0.0-1.0); HEMATOCRIT 36.1 % (36.0-47.0); HEMOGLOBIN 11.4 g/dl (12.0-15.5); LYMPH # 1.1 10^3/uL (1.5-5.0); LYMPH % 6.7 % (24.0-44.0); MEAN CORPUSCULAR HEMOGLOBIN 26.6 pg (27.0-33.0); MEAN CORPUSCULAR HGB CONC 31.6 g/dl (32.0-36.5); MEAN CORPUSCULAR VOLUME 84.1 fl (80.0-96.0); MONO # 0.2 10^3/uL (0.0-0.8); MONO % 1.5 % (2.0-8.0); NEUTROPHILS # 14.7 10^3/uL (1.5-8.5); NEUTROPHILS % 91.1 % (36.0-66.0); PLATELET COUNT, AUTOMATED 262 10^3/uL (150-450); RED BLOOD COUNT 4.29 10^6/uL (4.00-5.40); WHITE BLOOD COUNT 16.2 10^3/uL (4.0-10.0)
[2021-07-22 07:00] LABS: BILIRUBIN,TOTAL 0.3 MG/DL (0.2-1.0); CALCIUM LEVEL 9.3 MG/DL (8.8-10.2); CREATININE FOR GFR 0.95 MG/DL (0.55-1.30); GLOMERULAR FILTRATION RATE 59.8 (>32); MAGNESIUM LEVEL 2.1 MG/DL (1.8-2.4); POTASSIUM SERUM 3.4 MEQ/L (3.5-5.1); TOTAL PROTEIN 7.2 GM/DL (6.4-8.2)
[2021-07-22] MEDS ORDERED: POTASSIUM CHLORIDE 10MEQ SR TABLET PO ONE (07:35)
[2021-07-22] MEDS: TIOTROPIUM INHALER/CAPSULE (SPIRIVA) INH SCH (07:42)
[2021-07-22] MEDS: SYMBICORT 160/4.5MCG INHALER 6GM INH SCH ×2 (07:43→19:26)
[2021-07-22] MEDS: PARoxetine 10MG TABLET PO SCH (10:03)
[2021-07-22] MEDS: APIXABAN 5 MG TAB (ELIQUIS) PO SCH ×2 (10:03→20:19)
[2021-07-22] MEDS: OMEPRAZOLE 20MG CAP PO SCH (10:03)
[2021-07-22] MEDS: EZETIMIBE 10MG TABLET (ZETIA) PO SCH (10:04)
[2021-07-22] MEDS: PRAVASTATIN 20 MG TAB PO SCH (10:04)
[2021-07-22] MEDS: POTASSIUM CHLORIDE 10MEQ SR TABLET PO SCH ×2 (10:04→20:19)
[2021-07-22] MEDS: amLODIPine 5 MG TAB PO SCH (10:08)
[2021-07-22] MEDS: CARVedilol 6.25 MG TAB PO SCH ×2 (10:08→20:20)
[2021-07-22 12:01] VITALS: O2SAT 93
[2021-07-22 14:00] VITALS: BP 121/80
[2021-07-22] MEDS: ALPRAZolam 0.25 MG TAB PO PRN (14:04)
[2021-07-22 22:00] VITALS: BP 125/78
[2021-07-23 00:27] VITALS: O2SAT 94
[2021-07-23] MEDS: IPRATROPIUM 0.5MG/ALBUTEROL 2.5MG INH SOL UD 3ML (DUONEB) NEB SCH ×4 (00:50→19:36)
[2021-07-23] MEDS: methylPREDNISolone 40MG 1ML VIAL IV SCH ×3 (01:15→18:10)
[2021-07-23] MEDS: FUROSEMIDE 40MG/4ML VIAL (J1940) IV SCH ×3 (01:15→18:10)
[2021-07-23 06:00] VITALS: BP 131/74
[2021-07-23 06:26] LABS: BASO % 0.2 % (0.0-1.0); HEMATOCRIT 35.7 % (36.0-47.0); HEMOGLOBIN 11.5 g/dl (12.0-15.5); LYMPH % 7.2 % (24.0-44.0); MEAN CORPUSCULAR HEMOGLOBIN 27.1 pg (27.0-33.0); MEAN CORPUSCULAR HGB CONC 32.2 g/dl (32.0-36.5); MEAN CORPUSCULAR VOLUME 84.2 fl (80.0-96.0); MONO # 0.3 10^3/uL (0.0-0.8); NEUTROPHILS # 11.8 10^3/uL (1.5-8.5); NEUTROPHILS % 89.9 % (36.0-66.0); PLATELET COUNT, AUTOMATED 251 10^3/uL (150-450); RED BLOOD COUNT 4.24 10^6/uL (4.00-5.40); WHITE BLOOD COUNT 13.1 10^3/uL (4.0-10.0)
[2021-07-23 07:01] LABS: ALBUMIN 3.1 GM/DL (3.2-5.2); BILIRUBIN,TOTAL 0.4 MG/DL (0.2-1.0); CALCIUM LEVEL 8.4 MG/DL (8.8-10.2); CREATININE FOR GFR 1.04 MG/DL (0.55-1.30); GLOMERULAR FILTRATION RATE 53.9 (>32); MAGNESIUM LEVEL 2.1 MG/DL (1.8-2.4); POTASSIUM SERUM 3.5 MEQ/L (3.5-5.1); TOTAL PROTEIN 6.7 GM/DL (6.4-8.2)
[2021-07-23] MEDS: SYMBICORT 160/4.5MCG INHALER 6GM INH SCH ×2 (07:42→19:35)
[2021-07-23] MEDS: TIOTROPIUM INHALER/CAPSULE (SPIRIVA) INH SCH (07:42)
[2021-07-23 09:00] VITALS: O2SAT 94
[2021-07-23] MEDS: APIXABAN 5 MG TAB (ELIQUIS) PO SCH ×2 (10:16→20:01)
[2021-07-23] MEDS: POTASSIUM CHLORIDE 10MEQ SR TABLET PO SCH ×2 (10:16→20:01)
[2021-07-23] MEDS: EZETIMIBE 10MG TABLET (ZETIA) PO SCH (10:16)
[2021-07-23] MEDS: PRAVASTATIN 20 MG TAB PO SCH (10:16)
[2021-07-23] MEDS: PARoxetine 10MG TABLET PO SCH (10:17)
[2021-07-23] MEDS: OMEPRAZOLE 20MG CAP PO SCH (10:17)
[2021-07-23] MEDS: amLODIPine 5 MG TAB PO SCH (10:19)
[2021-07-23] MEDS: CARVedilol 6.25 MG TAB PO SCH ×2 (10:19→20:05)
[2021-07-23] MEDS: ALPRAZolam 0.25 MG TAB PO PRN (14:38)
[2021-07-23 21:47] VITALS: BP 124/80
[2021-07-24] MEDS: methylPREDNISolone 40MG 1ML VIAL IV SCH ×2 (00:04→08:20)
[2021-07-24] MEDS: BENZONATATE 100MG CAPSULE PO PRN ×2 (00:04→14:38)
[2021-07-24] MEDS: IPRATROPIUM 0.5MG/ALBUTEROL 2.5MG INH SOL UD 3ML (DUONEB) NEB SCH ×4 (02:00→20:00)
[2021-07-24 05:17] VITALS: BP 136/84
[2021-07-24 06:37] LABS: BASO % 0.1 % (0.0-1.0); HEMATOCRIT 36.8 % (36.0-47.0); HEMOGLOBIN 11.7 g/dl (12.0-15.5); LYMPH # 0.9 10^3/uL (1.5-5.0); LYMPH % 9.1 % (24.0-44.0); MEAN CORPUSCULAR HGB CONC 31.8 g/dl (32.0-36.5); MEAN CORPUSCULAR VOLUME 84.8 fl (80.0-96.0); MONO # 0.2 10^3/uL (0.0-0.8); MONO % 2.1 % (2.0-8.0); NEUTROPHILS % 87.9 % (36.0-66.0); PLATELET COUNT, AUTOMATED 228 10^3/uL (150-450); RED BLOOD COUNT 4.34 10^6/uL (4.00-5.40); WHITE BLOOD COUNT 10.3 10^3/uL (4.0-10.0)
[2021-07-24 07:07] LABS: ALBUMIN 3.1 GM/DL (3.2-5.2); ALT/SGPT 57 U/L (12-78); BILIRUBIN,TOTAL 0.4 MG/DL (0.2-1.0); BLOOD UREA NITROGEN 46 MG/DL (7-18); CALCIUM LEVEL 8.9 MG/DL (8.8-10.2); CARBON DIOXIDE LEVEL 38 MEQ/L (21-32); CHLORIDE LEVEL 98 MEQ/L (98-107); CREATININE FOR GFR 0.87 MG/DL (0.55-1.30); GLOMERULAR FILTRATION RATE > 60.0 (>32); GLUCOSE, FASTING 143 MG/DL (70-100); MAGNESIUM LEVEL 2.5 MG/DL (1.8-2.4); POTASSIUM SERUM 3.3 MEQ/L (3.5-5.1); SODIUM LEVEL 144 MEQ/L (136-145); TOTAL PROTEIN 6.8 GM/DL (6.4-8.2)
[2021-07-24] MEDS: SYMBICORT 160/4.5MCG INHALER 6GM INH SCH ×2 (07:38→20:25)
[2021-07-24] MEDS: TIOTROPIUM INHALER/CAPSULE (SPIRIVA) INH SCH (07:38)
[2021-07-24] MEDS ORDERED: POTASSIUM CHLORIDE 10MEQ SR TABLET PO ONE (07:45)
[2021-07-24] MEDS: POTASSIUM CHLORIDE 10MEQ SR TABLET PO SCH ×2 (08:21→20:12)
[2021-07-24] MEDS: PARoxetine 10MG TABLET PO SCH (08:21)
[2021-07-24] MEDS: EZETIMIBE 10MG TABLET (ZETIA) PO SCH (08:21)
[2021-07-24] MEDS: amLODIPine 5 MG TAB PO SCH (08:22)
[2021-07-24] MEDS: OMEPRAZOLE 20MG CAP PO SCH (08:22)
[2021-07-24] MEDS: CARVedilol 6.25 MG TAB PO SCH ×2 (08:22→20:12)
[2021-07-24] MEDS: FUROSEMIDE 40 MG TAB PO SCH ×2 (08:22→17:42)
[2021-07-24] MEDS: APIXABAN 5 MG TAB (ELIQUIS) PO SCH ×2 (08:22→20:12)
[2021-07-24] MEDS: PRAVASTATIN 20 MG TAB PO SCH (08:22)
[2021-07-24] MEDS ORDERED: diphenhydrAMINE 25MG CAP PO PRN (13:05)
[2021-07-24 14:00] VITALS: BP 134/82
[2021-07-24] MEDS: SERTRALINE HCL 25 MG TABLET PO SCH (14:05)
[2021-07-24 17:43] VITALS: BP 138/79
[2021-07-24] MEDS ORDERED: CHLORASEPTIC SPRAY MT PRN (18:40)
[2021-07-24 22:00] VITALS: BP 132/68
[2021-07-25] MEDS: IPRATROPIUM 0.5MG/ALBUTEROL 2.5MG INH SOL UD 3ML (DUONEB) NEB SCH ×4 (01:17→19:20)
[2021-07-25 07:04] LABS: BASO % 0.1 % (0.0-1.0); HEMATOCRIT 37.6 % (36.0-47.0); HEMOGLOBIN 11.9 g/dl (12.0-15.5); LYMPH % 6.5 % (24.0-44.0); MEAN CORPUSCULAR HEMOGLOBIN 26.4 pg (27.0-33.0); MEAN CORPUSCULAR HGB CONC 31.6 g/dl (32.0-36.5); MEAN CORPUSCULAR VOLUME 83.6 fl (80.0-96.0); MONO # 0.9 10^3/uL (0.0-0.8); NEUTROPHILS # 12.7 10^3/uL (1.5-8.5); NEUTROPHILS % 86.5 % (36.0-66.0); PLATELET COUNT, AUTOMATED 229 10^3/uL (150-450); WHITE BLOOD COUNT 14.7 10^3/uL (4.0-10.0)
[2021-07-25] MEDS: TIOTROPIUM INHALER/CAPSULE (SPIRIVA) INH SCH (07:28)
[2021-07-25] MEDS: SYMBICORT 160/4.5MCG INHALER 6GM INH SCH ×2 (07:28→19:20)
[2021-07-25 07:30] LABS: ALBUMIN 2.9 GM/DL (3.2-5.2); ALT/SGPT 52 U/L (12-78); BILIRUBIN,TOTAL 0.6 MG/DL (0.2-1.0); BLOOD UREA NITROGEN 43 MG/DL (7-18); CALCIUM LEVEL 8.8 MG/DL (8.8-10.2); CARBON DIOXIDE LEVEL 37 MEQ/L (21-32); CHLORIDE LEVEL 99 MEQ/L (98-107); CREATININE FOR GFR 0.83 MG/DL (0.55-1.30); GLOMERULAR FILTRATION RATE > 60.0 (>32); GLUCOSE, FASTING 128 MG/DL (70-100); MAGNESIUM LEVEL 2.3 MG/DL (1.8-2.4); SODIUM LEVEL 141 MEQ/L (136-145); TOTAL PROTEIN 6.8 GM/DL (6.4-8.2)
[2021-07-25] MEDS: FUROSEMIDE 40 MG TAB PO SCH ×3 (09:00→18:15)
[2021-07-25] MEDS: OMEPRAZOLE 20MG CAP PO SCH (09:57)
[2021-07-25] MEDS: EZETIMIBE 10MG TABLET (ZETIA) PO SCH (09:57)
[2021-07-25] MEDS: APIXABAN 5 MG TAB (ELIQUIS) PO SCH ×2 (09:57→20:00)
[2021-07-25] MEDS: POTASSIUM CHLORIDE 10MEQ SR TABLET PO SCH ×2 (09:57→20:00)
[2021-07-25] MEDS: CARVedilol 6.25 MG TAB PO SCH ×2 (09:59→20:00)
[2021-07-25] MEDS: PRAVASTATIN 20 MG TAB PO SCH (09:59)
[2021-07-25] MEDS: predniSONE 20 MG TAB PO SCH (09:59)
[2021-07-25] MEDS: amLODIPine 5 MG TAB PO SCH (09:59)
[2021-07-25] MEDS: PARoxetine 10MG TABLET PO SCH (09:59)
[2021-07-25] MEDS: SERTRALINE HCL 25 MG TABLET PO SCH (09:59)
[2021-07-25] MEDS ORDERED: POTASSIUM CHLORIDE 10MEQ SR TABLET PO ONE (11:00)
[2021-07-25 22:00] VITALS: BP 151/83
[2021-07-26] MEDS: IPRATROPIUM 0.5MG/ALBUTEROL 2.5MG INH SOL UD 3ML (DUONEB) NEB SCH ×4 (02:51→19:47)
[2021-07-26 05:02] VITALS: BP 152/76
[2021-07-26 06:10] LABS: BASO % 0.1 % (0.0-1.0); EOS % 0.1 % (0.0-3.0); HEMATOCRIT 38.2 % (36.0-47.0); LYMPH # 1.9 10^3/uL (1.5-5.0); LYMPH % 11.2 % (24.0-44.0); MEAN CORPUSCULAR HEMOGLOBIN 26.3 pg (27.0-33.0); MEAN CORPUSCULAR HGB CONC 31.4 g/dl (32.0-36.5); MEAN CORPUSCULAR VOLUME 83.8 fl (80.0-96.0); MONO # 1.4 10^3/uL (0.0-0.8); MONO % 8.3 % (2.0-8.0); NEUTROPHILS # 13.3 10^3/uL (1.5-8.5); NEUTROPHILS % 79.3 % (36.0-66.0); PLATELET COUNT, AUTOMATED 224 10^3/uL (150-450); RED BLOOD COUNT 4.56 10^6/uL (4.00-5.40); WHITE BLOOD COUNT 16.7 10^3/uL (4.0-10.0)
[2021-07-26 06:46] LABS: ALBUMIN 2.8 GM/DL (3.2-5.2); ALT/SGPT 51 U/L (12-78); BILIRUBIN,TOTAL 0.8 MG/DL (0.2-1.0); BLOOD UREA NITROGEN 35 MG/DL (7-18); CALCIUM LEVEL 8.4 MG/DL (8.8-10.2); CARBON DIOXIDE LEVEL 38 MEQ/L (21-32); CHLORIDE LEVEL 100 MEQ/L (98-107); CREATININE FOR GFR 0.74 MG/DL (0.55-1.30); GLOMERULAR FILTRATION RATE > 60.0 (>32); GLUCOSE, FASTING 102 MG/DL (70-100); MAGNESIUM LEVEL 2.1 MG/DL (1.8-2.4); POTASSIUM SERUM 3.3 MEQ/L (3.5-5.1); SODIUM LEVEL 142 MEQ/L (136-145); TOTAL PROTEIN 6.6 GM/DL (6.4-8.2)
[2021-07-26] MEDS ORDERED: POTASSIUM CHLORIDE 10MEQ SR TABLET PO ONE (07:15)
[2021-07-26] MEDS: SYMBICORT 160/4.5MCG INHALER 6GM INH SCH ×2 (07:43→19:47)
[2021-07-26] MEDS: TIOTROPIUM INHALER/CAPSULE (SPIRIVA) INH SCH (07:43)
[2021-07-26] MEDS: OMEPRAZOLE 20MG CAP PO SCH (09:40)
[2021-07-26] MEDS: EZETIMIBE 10MG TABLET (ZETIA) PO SCH (09:40)
[2021-07-26] MEDS: amLODIPine 5 MG TAB PO SCH (09:40)
[2021-07-26] MEDS: POTASSIUM CHLORIDE 10MEQ SR TABLET PO SCH ×2 (09:41→20:13)
[2021-07-26] MEDS: PARoxetine 10MG TABLET PO SCH (09:41)
[2021-07-26] MEDS: SERTRALINE HCL 25 MG TABLET PO SCH (09:41)
[2021-07-26] MEDS: APIXABAN 5 MG TAB (ELIQUIS) PO SCH ×2 (09:41→20:13)
[2021-07-26] MEDS: FUROSEMIDE 40 MG TAB PO SCH ×2 (09:41→17:35)
[2021-07-26] MEDS: predniSONE 20 MG TAB PO SCH (09:42)
[2021-07-26] MEDS: PRAVASTATIN 20 MG TAB PO SCH (09:42)
[2021-07-26] MEDS: CARVedilol 6.25 MG TAB PO SCH ×2 (09:43→20:14)
[2021-07-26 14:00] VITALS: BP 147/97
[2021-07-26] MEDS: BENZONATATE 100MG CAPSULE PO PRN (17:27)
[2021-07-26 22:00] VITALS: BP 133/85
[2021-07-27] MEDS: IPRATROPIUM 0.5MG/ALBUTEROL 2.5MG INH SOL UD 3ML (DUONEB) NEB SCH (02:00)
[2021-07-27 06:00] VITALS: BP 146/89
[2021-07-27 06:12] LABS: BASO # 0.1 10^3/uL (0.0-0.2); BASO % 0.4 % (0.0-1.0); EOS # 0.1 10^3/uL (0.0-0.5); EOS % 0.6 % (0.0-3.0); HEMOGLOBIN 11.9 g/dl (12.0-15.5); LYMPH # 2.5 10^3/uL (1.5-5.0); MEAN CORPUSCULAR HEMOGLOBIN 26.8 pg (27.0-33.0); MEAN CORPUSCULAR HGB CONC 31.3 g/dl (32.0-36.5); MEAN CORPUSCULAR VOLUME 85.6 fl (80.0-96.0); MONO % 9.5 % (2.0-8.0); PLATELET COUNT, AUTOMATED 231 10^3/uL (150-450); RED BLOOD COUNT 4.44 10^6/uL (4.00-5.40); WHITE BLOOD COUNT 16.5 10^3/uL (4.0-10.0)
[2021-07-27 06:43] LABS: ALBUMIN 2.8 GM/DL (3.2-5.2); ALT/SGPT 45 U/L (12-78); BLOOD UREA NITROGEN 34 MG/DL (7-18); CARBON DIOXIDE LEVEL 36 MEQ/L (21-32); CHLORIDE LEVEL 100 MEQ/L (98-107); GLOMERULAR FILTRATION RATE > 60.0 (>32); GLUCOSE, FASTING 115 MG/DL (70-100); MAGNESIUM LEVEL 2.2 MG/DL (1.8-2.4); POTASSIUM SERUM 3.6 MEQ/L (3.5-5.1); SODIUM LEVEL 142 MEQ/L (136-145); TOTAL PROTEIN 6.4 GM/DL (6.4-8.2)
[2021-07-27 06:45] LABS: MONO # 1.6 10^3/uL (0.0-0.8)
[2021-07-27] MEDS ORDERED: LEVALBUTEROL 1.25 MG/0.5 ML CONCENTRATE NEB INH PRN (07:50)
[2021-07-27] MEDS: TIOTROPIUM INHALER/CAPSULE (SPIRIVA) INH SCH (07:55)
[2021-07-27] MEDS: SYMBICORT 160/4.5MCG INHALER 6GM INH SCH ×2 (07:56→19:27)
[2021-07-27] MEDS: amLODIPine 5 MG TAB PO SCH (08:02)
[2021-07-27] MEDS: APIXABAN 5 MG TAB (ELIQUIS) PO SCH ×2 (08:02→22:12)
[2021-07-27] MEDS: OMEPRAZOLE 20MG CAP PO SCH (08:03)
[2021-07-27] MEDS: predniSONE 20 MG TAB PO SCH (08:03)
[2021-07-27] MEDS: FUROSEMIDE 40 MG TAB PO SCH ×2 (08:03→17:06)
[2021-07-27] MEDS: SERTRALINE HCL 25 MG TABLET PO SCH (08:03)
[2021-07-27] MEDS: EZETIMIBE 10MG TABLET (ZETIA) PO SCH (08:03)
[2021-07-27] MEDS: CARVedilol 6.25 MG TAB PO SCH ×2 (08:03→22:17)
[2021-07-27] MEDS: POTASSIUM CHLORIDE 10MEQ SR TABLET PO SCH ×2 (08:03→22:12)
[2021-07-27] MEDS: PRAVASTATIN 20 MG TAB PO SCH (08:03)
[2021-07-27 14:00] VITALS: BP 130/76
[2021-07-27] MEDS: BENZONATATE 100MG CAPSULE PO PRN ×2 (14:31→22:20)
[2021-07-27 20:00] VITALS: BP 132/76
[2021-07-28 06:00] VITALS: BP 140/79
[2021-07-28 06:31] LABS: BASO # 0.1 10^3/uL (0.0-0.2); BASO % 0.3 % (0.0-1.0); EOS # 0.3 10^3/uL (0.0-0.5); EOS % 1.4 % (0.0-3.0); HEMATOCRIT 39.4 % (36.0-47.0); HEMOGLOBIN 12.3 g/dl (12.0-15.5); LYMPH # 4.3 10^3/uL (1.5-5.0); LYMPH % 24.8 % (24.0-44.0); MEAN CORPUSCULAR HEMOGLOBIN 25.9 pg (27.0-33.0); MEAN CORPUSCULAR HGB CONC 31.2 g/dl (32.0-36.5); MEAN CORPUSCULAR VOLUME 82.9 fl (80.0-96.0); MONO % 10.6 % (2.0-8.0); NEUTROPHILS # 10.6 10^3/uL (1.5-8.5); PLATELET COUNT, AUTOMATED 230 10^3/uL (150-450); RED BLOOD COUNT 4.75 10^6/uL (4.00-5.40); WHITE BLOOD COUNT 17.4 10^3/uL (4.0-10.0)
[2021-07-28 07:22] LABS: ALBUMIN 2.7 GM/DL (3.2-5.2); ALT/SGPT 43 U/L (12-78); BILIRUBIN,TOTAL 0.9 MG/DL (0.2-1.0); BLOOD UREA NITROGEN 28 MG/DL (7-18); CALCIUM LEVEL 8.4 MG/DL (8.8-10.2); CARBON DIOXIDE LEVEL 38 MEQ/L (21-32); CHLORIDE LEVEL 97 MEQ/L (98-107); CREATININE FOR GFR 0.85 MG/DL (0.55-1.30); GLOMERULAR FILTRATION RATE > 60.0 (>32); GLUCOSE, FASTING 107 MG/DL (70-100); MONO # 1.8 10^3/uL (0.0-0.8); POTASSIUM SERUM 3.2 MEQ/L (3.5-5.1); SODIUM LEVEL 139 MEQ/L (136-145); TOTAL PROTEIN 6.7 GM/DL (6.4-8.2)
[2021-07-28] MEDS: SYMBICORT 160/4.5MCG INHALER 6GM INH SCH ×2 (07:31→19:41)
[2021-07-28] MEDS: TIOTROPIUM INHALER/CAPSULE (SPIRIVA) INH SCH (07:31)
[2021-07-28] MEDS ORDERED: POTASSIUM CHLORIDE 10MEQ SR TABLET PO ONE (08:00)
[2021-07-28] MEDS: APIXABAN 5 MG TAB (ELIQUIS) PO SCH ×2 (09:58→21:07)
[2021-07-28] MEDS: EZETIMIBE 10MG TABLET (ZETIA) PO SCH (09:58)
[2021-07-28] MEDS: amLODIPine 5 MG TAB PO SCH (09:58)
[2021-07-28] MEDS: SERTRALINE HCL 25 MG TABLET PO SCH (09:59)
[2021-07-28] MEDS: POTASSIUM CHLORIDE 10MEQ SR TABLET PO SCH ×2 (09:59→21:07)
[2021-07-28] MEDS: CARVedilol 6.25 MG TAB PO SCH (09:59)
[2021-07-28] MEDS: FUROSEMIDE 40 MG TAB PO SCH ×2 (09:59→17:13)
[2021-07-28] MEDS: OMEPRAZOLE 20MG CAP PO SCH (09:59)
[2021-07-28] MEDS: predniSONE 20 MG TAB PO SCH (09:59)
[2021-07-28] MEDS: PRAVASTATIN 20 MG TAB PO SCH (09:59)
[2021-07-28] MEDS ORDERED: CARVedilol 6.25 MG TAB PO ONE (10:15)
[2021-07-28 14:00] VITALS: BP 128/73
[2021-07-28 17:13] VITALS: BP 129/74
[2021-07-28] MEDS: CARVedilol 12.5 MG TAB PO SCH (21:07)
[2021-07-28 22:00] VITALS: BP 144/84
[2021-07-29 06:00] VITALS: BP 150/87
[2021-07-29 06:41] LABS: HEMATOCRIT 39.4 % (36.0-47.0); HEMOGLOBIN 12.4 g/dl (12.0-15.5); MEAN CORPUSCULAR HEMOGLOBIN 26.7 pg (27.0-33.0); MEAN CORPUSCULAR HGB CONC 31.5 g/dl (32.0-36.5); MEAN CORPUSCULAR VOLUME 84.9 fl (80.0-96.0); PLATELET COUNT, AUTOMATED 251 10^3/uL (150-450); RED BLOOD COUNT 4.64 10^6/uL (4.00-5.40); WHITE BLOOD COUNT 23.6 10^3/uL (4.0-10.0)
[2021-07-29 06:56] LABS: BLOOD UREA NITROGEN 32 MG/DL (7-18); CALCIUM LEVEL 8.5 MG/DL (8.8-10.2); CARBON DIOXIDE LEVEL 36 MEQ/L (21-32); CHLORIDE LEVEL 100 MEQ/L (98-107); CREATININE FOR GFR 0.89 MG/DL (0.55-1.30); GLOMERULAR FILTRATION RATE > 60.0 (>32); GLUCOSE, FASTING 105 MG/DL (70-100); POTASSIUM SERUM 3.6 MEQ/L (3.5-5.1); SODIUM LEVEL 140 MEQ/L (136-145)
[2021-07-29] MEDS: SYMBICORT 160/4.5MCG INHALER 6GM INH SCH ×2 (07:44→20:00)
[2021-07-29] MEDS: TIOTROPIUM INHALER/CAPSULE (SPIRIVA) INH SCH (07:44)
[2021-07-29] MEDS ORDERED: ISOVUE-370 76% 100ML VIAL As Ordered ONE (08:10)
[2021-07-29] MEDS: amLODIPine 5 MG TAB PO SCH (09:19)
[2021-07-29] MEDS: APIXABAN 5 MG TAB (ELIQUIS) PO SCH ×2 (09:19→20:37)
[2021-07-29] MEDS: POTASSIUM CHLORIDE 10MEQ SR TABLET PO SCH ×2 (09:19→20:37)
[2021-07-29] MEDS: OMEPRAZOLE 20MG CAP PO SCH (09:19)
[2021-07-29] MEDS: EZETIMIBE 10MG TABLET (ZETIA) PO SCH (09:19)
[2021-07-29] MEDS: predniSONE 20 MG TAB PO SCH (09:19)
[2021-07-29] MEDS: PRAVASTATIN 20 MG TAB PO SCH (09:19)
[2021-07-29] MEDS: SERTRALINE HCL 25 MG TABLET PO SCH (09:19)
[2021-07-29] MEDS: FUROSEMIDE 40 MG TAB PO SCH ×2 (09:20→17:23)
[2021-07-29] MEDS: CARVedilol 12.5 MG TAB PO SCH ×2 (09:20→20:37)
[2021-07-29] MEDS: PIPERACILLIN/TAZOBACTAM SOD 4.5 GM in D5W MINI-BAG PLUS 50 ML IV SCH ×2 (13:34→18:39)
[2021-07-29 14:00] VITALS: BP 109/65
[2021-07-29 17:23] VITALS: BP 124/76
[2021-07-29] MEDS ORDERED: LORazepam 0.5 MG TAB PO ONE (18:35)
[2021-07-29 18:55] VITALS: BP 130/64
[2021-07-29 22:00] VITALS: BP 130/60
[2021-07-30] MEDS: PIPERACILLIN/TAZOBACTAM SOD 4.5 GM in D5W MINI-BAG PLUS 50 ML IV SCH ×4 (00:28→18:30)
[2021-07-30 05:37] VITALS: BP 125/74
[2021-07-30 06:22] LABS: HEMATOCRIT 37.1 % (36.0-47.0); HEMOGLOBIN 11.9 g/dl (12.0-15.5); MEAN CORPUSCULAR HEMOGLOBIN 27.1 pg (27.0-33.0); MEAN CORPUSCULAR HGB CONC 32.1 g/dl (32.0-36.5); MEAN CORPUSCULAR VOLUME 84.5 fl (80.0-96.0); PLATELET COUNT, AUTOMATED 243 10^3/uL (150-450); RED BLOOD COUNT 4.39 10^6/uL (4.00-5.40)
[2021-07-30 06:39] LABS: BLOOD UREA NITROGEN 29 MG/DL (7-18); CALCIUM LEVEL 9.2 MG/DL (8.8-10.2); CARBON DIOXIDE LEVEL 35 MEQ/L (21-32); CHLORIDE LEVEL 99 MEQ/L (98-107); CREATININE FOR GFR 0.94 MG/DL (0.55-1.30); GLOMERULAR FILTRATION RATE > 60.0 (>32); GLUCOSE, FASTING 106 MG/DL (70-100); POTASSIUM SERUM 3.3 MEQ/L (3.5-5.1); SODIUM LEVEL 142 MEQ/L (136-145)
[2021-07-30] MEDS ORDERED: POTASSIUM CHLORIDE 10MEQ SR TABLET PO ONE (08:00)
[2021-07-30] MEDS: SYMBICORT 160/4.5MCG INHALER 6GM INH SCH ×2 (08:08→19:33)
[2021-07-30] MEDS: TIOTROPIUM INHALER/CAPSULE (SPIRIVA) INH SCH (08:08)
[2021-07-30] MEDS ORDERED: VARIBAR NECTAR 40% w/v 240ML SUSP BTL As Ordered ONE (08:49)
[2021-07-30] MEDS ORDERED: VARIBAR PUDDING 40% w/v 230ML TUBE As Ordered ONE (08:49)
[2021-07-30] MEDS ORDERED: E-Z-PAQUE 96% w/w SUSP 176GM BTL As Ordered ONE (08:49)
[2021-07-30] MEDS ORDERED: BARIUM SULFATE 700 MG TABLET (E-Z-DISK) As Ordered ONE (08:50)
[2021-07-30] MEDS: SERTRALINE HCL 25 MG TABLET PO SCH (09:41)
[2021-07-30] MEDS: PRAVASTATIN 20 MG TAB PO SCH (09:41)
[2021-07-30] MEDS: POTASSIUM CHLORIDE 10MEQ SR TABLET PO SCH ×2 (09:42→21:38)
[2021-07-30] MEDS: predniSONE 20 MG TAB PO SCH (09:42)
[2021-07-30] MEDS: OMEPRAZOLE 20MG CAP PO SCH (09:42)
[2021-07-30] MEDS: FUROSEMIDE 40 MG TAB PO SCH ×2 (09:42→18:31)
[2021-07-30] MEDS: APIXABAN 5 MG TAB (ELIQUIS) PO SCH ×2 (09:42→21:38)
[2021-07-30] MEDS: EZETIMIBE 10MG TABLET (ZETIA) PO SCH (09:43)
[2021-07-30] MEDS: CARVedilol 12.5 MG TAB PO SCH ×2 (09:43→21:38)
[2021-07-30] MEDS: amLODIPine 5 MG TAB PO SCH (09:43)
[2021-07-30 14:00] VITALS: BP 122/71
[2021-07-30 22:00] VITALS: BP 125/76
[2021-07-31] MEDS: PIPERACILLIN/TAZOBACTAM SOD 4.5 GM in D5W MINI-BAG PLUS 50 ML IV SCH ×4 (00:47→18:23)
[2021-07-31 06:00] VITALS: BP 120/75
[2021-07-31 07:21] LABS: HEMATOCRIT 34.7 % (36.0-47.0); HEMOGLOBIN 10.9 g/dl (12.0-15.5); MEAN CORPUSCULAR HEMOGLOBIN 26.8 pg (27.0-33.0); MEAN CORPUSCULAR HGB CONC 31.4 g/dl (32.0-36.5); MEAN CORPUSCULAR VOLUME 85.3 fl (80.0-96.0); PLATELET COUNT, AUTOMATED 223 10^3/uL (150-450); RED BLOOD COUNT 4.07 10^6/uL (4.00-5.40); WHITE BLOOD COUNT 17.5 10^3/uL (4.0-10.0)
[2021-07-31 07:47] LABS: BLOOD UREA NITROGEN 24 MG/DL (7-18); CALCIUM LEVEL 8.1 MG/DL (8.8-10.2); CARBON DIOXIDE LEVEL 35 MEQ/L (21-32); CHLORIDE LEVEL 98 MEQ/L (98-107); CREATININE FOR GFR 0.81 MG/DL (0.55-1.30); GLOMERULAR FILTRATION RATE > 60.0 (>32); GLUCOSE, FASTING 97 MG/DL (70-100); POTASSIUM SERUM 2.9 MEQ/L (3.5-5.1); SODIUM LEVEL 140 MEQ/L (136-145)
[2021-07-31] MEDS ORDERED: POTASSIUM CHLORIDE 10MEQ SR TABLET PO ONE ×2 (08:00→12:00)
[2021-07-31 08:11] LABS: MAGNESIUM LEVEL 2.1 MG/DL (1.8-2.4)
[2021-07-31] MEDS: SYMBICORT 160/4.5MCG INHALER 6GM INH SCH ×2 (08:26→19:43)
[2021-07-31] MEDS: TIOTROPIUM INHALER/CAPSULE (SPIRIVA) INH SCH (08:27)
[2021-07-31] MEDS: EZETIMIBE 10MG TABLET (ZETIA) PO SCH (08:48)
[2021-07-31] MEDS: OMEPRAZOLE 20MG CAP PO SCH (08:48)
[2021-07-31] MEDS: SERTRALINE HCL 25 MG TABLET PO SCH (08:48)
[2021-07-31] MEDS: PRAVASTATIN 20 MG TAB PO SCH (08:48)
[2021-07-31] MEDS: POTASSIUM CHLORIDE 10MEQ SR TABLET PO SCH ×2 (08:48→20:39)
[2021-07-31] MEDS: FUROSEMIDE 40 MG TAB PO SCH ×2 (08:49→18:23)
[2021-07-31] MEDS: APIXABAN 5 MG TAB (ELIQUIS) PO SCH ×2 (08:49→20:40)
[2021-07-31] MEDS: predniSONE 20 MG TAB PO SCH (08:49)
[2021-07-31] MEDS: CARVedilol 12.5 MG TAB PO SCH ×2 (08:58→20:42)
[2021-07-31] MEDS: amLODIPine 5 MG TAB PO SCH (08:59)
[2021-07-31] MEDS: LACTOBACILLUS ACIDOPHILUS CAP (BACID) PO SCH ×2 (12:47→18:22)
[2021-07-31 14:00] VITALS: BP 118/60
[2021-07-31 18:16] LABS: CALCIUM LEVEL 9.1 MG/DL (8.8-10.2); GLOMERULAR FILTRATION RATE 56.4 (>32)
[2021-07-31] MEDS: guaiFENesin ER 600 MG TAB PO PRN (20:39)
[2021-07-31 22:00] VITALS: BP 113/72
[2021-08-01] MEDS: PIPERACILLIN/TAZOBACTAM SOD 4.5 GM in D5W MINI-BAG PLUS 50 ML IV SCH ×4 (00:22→18:18)
[2021-08-01 06:00] VITALS: BP 116/60
[2021-08-01 07:08] LABS: HEMATOCRIT 34.3 % (36.0-47.0); HEMOGLOBIN 10.6 g/dl (12.0-15.5); MEAN CORPUSCULAR HEMOGLOBIN 26.6 pg (27.0-33.0); MEAN CORPUSCULAR HGB CONC 30.9 g/dl (32.0-36.5); MEAN CORPUSCULAR VOLUME 86.2 fl (80.0-96.0); PLATELET COUNT, AUTOMATED 220 10^3/uL (150-450); RED BLOOD COUNT 3.98 10^6/uL (4.00-5.40); WHITE BLOOD COUNT 15.4 10^3/uL (4.0-10.0)
[2021-08-01 07:12] LABS: BLOOD UREA NITROGEN 23 MG/DL (7-18); CALCIUM LEVEL 8.4 MG/DL (8.8-10.2); CARBON DIOXIDE LEVEL 35 MEQ/L (21-32); CHLORIDE LEVEL 101 MEQ/L (98-107); CREATININE FOR GFR 0.85 MG/DL (0.55-1.30); GLOMERULAR FILTRATION RATE > 60.0 (>32); GLUCOSE, FASTING 91 MG/DL (70-100); POTASSIUM SERUM 3.4 MEQ/L (3.5-5.1); SODIUM LEVEL 143 MEQ/L (136-145)
[2021-08-01] MEDS ORDERED: POTASSIUM CHLORIDE 10MEQ SR TABLET PO ONE (07:30)
[2021-08-01] MEDS: SYMBICORT 160/4.5MCG INHALER 6GM INH SCH ×2 (07:36→19:51)
[2021-08-01] MEDS: TIOTROPIUM INHALER/CAPSULE (SPIRIVA) INH SCH (07:37)
[2021-08-01] MEDS: PRAVASTATIN 20 MG TAB PO SCH (08:50)
[2021-08-01] MEDS: predniSONE 5 MG TAB PO SCH (08:50)
[2021-08-01] MEDS: guaiFENesin ER 600 MG TAB PO PRN (08:50)
[2021-08-01] MEDS: SERTRALINE HCL 25 MG TABLET PO SCH (08:50)
[2021-08-01] MEDS: FUROSEMIDE 40 MG TAB PO SCH ×2 (08:50→18:18)
[2021-08-01] MEDS: APIXABAN 5 MG TAB (ELIQUIS) PO SCH ×2 (08:51→20:15)
[2021-08-01] MEDS: CARVedilol 12.5 MG TAB PO SCH ×2 (08:51→20:15)
[2021-08-01] MEDS: LACTOBACILLUS ACIDOPHILUS CAP (BACID) PO SCH ×2 (08:51→18:18)
[2021-08-01] MEDS: EZETIMIBE 10MG TABLET (ZETIA) PO SCH (08:51)
[2021-08-01] MEDS: POTASSIUM CHLORIDE 10MEQ SR TABLET PO SCH ×2 (08:52→20:15)
[2021-08-01] MEDS: amLODIPine 5 MG TAB PO SCH (08:52)
[2021-08-01] MEDS: OMEPRAZOLE 20MG CAP PO SCH (08:52)
[2021-08-01 14:00] VITALS: BP 115/62
[2021-08-01 22:00] VITALS: BP 113/59
[2021-08-02] MEDS: PIPERACILLIN/TAZOBACTAM SOD 4.5 GM in D5W MINI-BAG PLUS 50 ML IV SCH ×3 (01:52→14:00)
[2021-08-02 06:02] LABS: HEMATOCRIT 33.5 % (36.0-47.0); HEMOGLOBIN 10.5 g/dl (12.0-15.5); MEAN CORPUSCULAR HEMOGLOBIN 26.9 pg (27.0-33.0); MEAN CORPUSCULAR HGB CONC 31.3 g/dl (32.0-36.5); MEAN CORPUSCULAR VOLUME 85.7 fl (80.0-96.0); PLATELET COUNT, AUTOMATED 213 10^3/uL (150-450); RED BLOOD COUNT 3.91 10^6/uL (4.00-5.40); WHITE BLOOD COUNT 12.1 10^3/uL (4.0-10.0)
[2021-08-02 06:25] LABS: BLOOD UREA NITROGEN 25 MG/DL (7-18); CALCIUM LEVEL 8.6 MG/DL (8.8-10.2); CARBON DIOXIDE LEVEL 35 MEQ/L (21-32); CHLORIDE LEVEL 99 MEQ/L (98-107); CREATININE FOR GFR 0.78 MG/DL (0.55-1.30); GLOMERULAR FILTRATION RATE > 60.0 (>32); GLUCOSE, FASTING 95 MG/DL (70-100); SODIUM LEVEL 141 MEQ/L (136-145)
[2021-08-02] MEDS: SYMBICORT 160/4.5MCG INHALER 6GM INH SCH (07:31)
[2021-08-02] MEDS: TIOTROPIUM INHALER/CAPSULE (SPIRIVA) INH SCH (07:31)
[2021-08-02] MEDS ORDERED: POTASSIUM CHLORIDE 10MEQ SR TABLET PO ONE (07:45)
[2021-08-02] MEDS: PRAVASTATIN 20 MG TAB PO SCH (08:11)
[2021-08-02] MEDS: LACTOBACILLUS ACIDOPHILUS CAP (BACID) PO SCH (08:11)
[2021-08-02] MEDS: APIXABAN 5 MG TAB (ELIQUIS) PO SCH (08:11)
[2021-08-02] MEDS: SERTRALINE HCL 25 MG TABLET PO SCH (08:11)
[2021-08-02] MEDS: OMEPRAZOLE 20MG CAP PO SCH (08:11)
[2021-08-02] MEDS: predniSONE 5 MG TAB PO SCH (08:11)
[2021-08-02] MEDS: FUROSEMIDE 40 MG TAB PO SCH (08:12)
[2021-08-02] MEDS: EZETIMIBE 10MG TABLET (ZETIA) PO SCH (08:12)
[2021-08-02 08:13] VITALS: BP 130/73
[2021-08-02] MEDS: amLODIPine 5 MG TAB PO SCH (08:13)
[2021-08-02] MEDS: CARVedilol 12.5 MG TAB PO SCH (08:13)
[2021-08-02] MEDS ORDERED: PRED5TA PO (10:04)
[2021-08-02] MEDS ORDERED: SERT25TA21 PO (10:04)
[2021-08-02] MEDS ORDERED: RISATAB3 PO (10:04)
[2021-08-02] MEDS ORDERED: HALO1TAB19 PO (10:04)
[2021-08-02] MEDS ORDERED: ZOSY1SOL5 IV (10:04)
[2021-08-02] MEDS ORDERED: CARV6.25 PO (10:04)
[2021-08-02] MEDS ORDERED: SYMB16INH INH (10:04)
[2021-08-02] MEDS ORDERED: HALO5TAB33 PO (10:04)
[2021-08-02] MEDS ORDERED: TIOT18INH INH (10:04)
[2021-08-02] MEDS ORDERED: FURO40TA2 PO (10:04)
[2021-08-02] MEDS: POTASSIUM CHLORIDE 10MEQ SR TABLET PO SCH (10:16)
[2021-08-02 14:00] VITALS: BP 133/72
[2021-08-02] MEDS ORDERED: AUGMENTIN 875 MG TAB PO SCH (21:00)
== END 2021-08-02 15:27 | DRG 291 ==
LOC: M ED 08:54 → EDBD 08:54 → M MSPAV 15:24 → ENRESERV 15:26
PROVIDERS: ADMIT Family Medicine; ATTEND Internal Medicine
DX: I11.0 Hypertensive heart disease with heart failure (principal); I50.33 Acute on chronic diastolic (congestive) heart failure; J69.0 Pneumonitis due to inhalation of food and vomit; G93.41 Metabolic encephalopathy; J44.1 Chronic obstructive pulmonary disease with (acute) exacerbation; I48.91 Unspecified atrial fibrillation; K22.70 Barrett's esophagus without dysplasia; K21.9 Gastro-esophageal reflux disease without esophagitis; Z86.16 Personal history of COVID-19; F41.1 Generalized anxiety disorder; Z90.49 Acquired absence of other specified parts of digestive tract; Z87.891 Personal history of nicotine dependence; E78.5 Hyperlipidemia, unspecified; M40.204 Unspecified kyphosis, thoracic region; R25.2 Cramp and spasm; Z20.822 Contact with and (suspected) exposure to COVID-19; Z79.01 Long term (current) use of anticoagulants; Z79.899 Other long term (current) drug therapy; Z88.8 Allergy status to other drugs, medicaments and biological substances; R13.10 Dysphagia, unspecified; R09.02 Hypoxemia; R41.0 Disorientation, unspecified

== ENCOUNTER 2021-08-02 12:00 | Inpatient (IN) | payer MEDICARE, BC ==
[~2021-08-02] VITALS: Ht 147.3 cm; Wt 57.1 kg
[~2021-08-02 12:00] MED LIST changes: +ACET1TAB55 PO; +ALBU2.5V10 INH; +FURO40TA2 PO; +HALO1TAB19 PO; +HALO5TAB33 PO; +MAGN64TASA PO; +PRED5TA PO; +RISATAB3 PO; +SERT25TA21 PO; +SYMB16INH INH; +TIOT18INH INH; +ZOSY1SOL5 IV
[2021-08-02] MEDS ORDERED: MIRALAX *UNIT DOSE* 17GM PACKET PO PRN (13:35)
[2021-08-02] MEDS ORDERED: diphenhydrAMINE 50MG/ML VIAL (J1200) IM PRN (13:35)
[2021-08-02] MEDS ORDERED: BENZONATATE 100MG CAPSULE PO PRN (13:35)
[2021-08-02 15:30] VITALS: BP 130/63
[2021-08-02] MEDS: REMEDY PHYTOPLEX Z-GUARD PASTE 113GM TUBE (FROM STOREROOM PRODUCT) TOP SCH ×2 (16:00→20:24)
[2021-08-02] MEDS: guaiFENesin 200 MG TAB PO SCH ×2 (16:10→20:22)
[2021-08-02] MEDS: FUROSEMIDE 40 MG TAB PO SCH (16:11)
[2021-08-02] MEDS: LACTOBACILLUS ACIDOPHILUS CAP (BACID) PO SCH (17:46)
[2021-08-02] MEDS: SUCRALFATE 1 GM TAB PO SCH ×2 (17:46→20:22)
[2021-08-02 19:17] VITALS: BP 153/91
[2021-08-02 19:52] VITALS: BP 138/78
[2021-08-02] MEDS: SYMBICORT 160/4.5MCG INHALER 6GM INH SCH (20:07)
[2021-08-02] MEDS: CARVedilol 12.5 MG TAB PO SCH (20:22)
[2021-08-02] MEDS: APIXABAN 5 MG TAB (ELIQUIS) PO SCH (20:22)
[2021-08-02] MEDS: PIPERACILLIN/TAZOBACTAM SOD 4.5 GM in D5W MINI-BAG PLUS 50 ML IV SCH (20:23)
[2021-08-02] MEDS: POTASSIUM CHLORIDE 10MEQ SR TABLET PO SCH (20:23)
[2021-08-03] MEDS: PIPERACILLIN/TAZOBACTAM SOD 4.5 GM in D5W MINI-BAG PLUS 50 ML IV SCH ×4 (02:22→20:59)
[2021-08-03 05:17] VITALS: BP 138/84
[2021-08-03 06:36] LABS: BASO % 0.2 % (0.0-1.0); EOS # 0.1 10^3/uL (0.0-0.5); EOS % 0.5 % (0.0-3.0); HEMATOCRIT 36.8 % (36.0-47.0); HEMOGLOBIN 11.6 g/dl (12.0-15.5); LYMPH # 3.1 10^3/uL (1.5-5.0); LYMPH % 23.2 % (24.0-44.0); MEAN CORPUSCULAR HEMOGLOBIN 26.8 pg (27.0-33.0); MEAN CORPUSCULAR HGB CONC 31.5 g/dl (32.0-36.5); MONO % 7.6 % (2.0-8.0); NEUTROPHILS % 66.9 % (36.0-66.0); PLATELET COUNT, AUTOMATED 226 10^3/uL (150-450); RED BLOOD COUNT 4.33 10^6/uL (4.00-5.40); WHITE BLOOD COUNT 13.4 10^3/uL (4.0-10.0)
[2021-08-03 07:10] LABS: ALBUMIN 2.7 GM/DL (3.2-5.2); ALT/SGPT 53 U/L (12-78); BILIRUBIN,TOTAL 0.6 MG/DL (0.2-1.0); BLOOD UREA NITROGEN 25 MG/DL (7-18); CALCIUM LEVEL 9.4 MG/DL (8.8-10.2); CARBON DIOXIDE LEVEL 31 MEQ/L (21-32); CHLORIDE LEVEL 102 MEQ/L (98-107); CREATININE FOR GFR 0.85 MG/DL (0.55-1.30); GLOMERULAR FILTRATION RATE > 60.0 (>32); GLUCOSE, FASTING 91 MG/DL (70-100); POTASSIUM SERUM 3.2 MEQ/L (3.5-5.1); SODIUM LEVEL 143 MEQ/L (136-145); TOTAL PROTEIN 6.2 GM/DL (6.4-8.2)
[2021-08-03] MEDS: TIOTROPIUM INHALER/CAPSULE (SPIRIVA) INH SCH (08:00)
[2021-08-03] MEDS: SYMBICORT 160/4.5MCG INHALER 6GM INH SCH ×2 (08:00→20:44)
[2021-08-03] MEDS: SUCRALFATE 1 GM TAB PO SCH ×4 (08:41→21:01)
[2021-08-03] MEDS: predniSONE 10 MG TAB PO SCH (08:41)
[2021-08-03] MEDS: POTASSIUM CHLORIDE 10MEQ SR TABLET PO SCH ×2 (08:41→21:01)
[2021-08-03] MEDS: OMEPRAZOLE 20MG CAP PO SCH (08:41)
[2021-08-03] MEDS: LACTOBACILLUS ACIDOPHILUS CAP (BACID) PO SCH ×2 (08:41→17:52)
[2021-08-03] MEDS: EZETIMIBE 10MG TABLET (ZETIA) PO SCH (08:41)
[2021-08-03] MEDS: guaiFENesin 200 MG TAB PO SCH ×3 (08:41→21:00)
[2021-08-03] MEDS: APIXABAN 5 MG TAB (ELIQUIS) PO SCH ×2 (08:42→21:00)
[2021-08-03] MEDS: MAGNESIUM OXIDE 400MG TAB (MAG-OX) PO SCH (08:42)
[2021-08-03] MEDS: PRAVASTATIN 20 MG TAB PO SCH (08:42)
[2021-08-03] MEDS: amLODIPine 5 MG TAB PO SCH (08:42)
[2021-08-03] MEDS: FUROSEMIDE 40 MG TAB PO SCH ×2 (08:42→17:52)
[2021-08-03] MEDS: SERTRALINE HCL 25 MG TABLET PO SCH (08:42)
[2021-08-03] MEDS: REMEDY PHYTOPLEX Z-GUARD PASTE 113GM TUBE (FROM STOREROOM PRODUCT) TOP SCH ×3 (08:43→21:00)
[2021-08-03] MEDS: CARVedilol 12.5 MG TAB PO SCH ×2 (08:43→21:00)
[2021-08-03] MEDS ORDERED: POTASSIUM CHLORIDE 10MEQ SR TABLET PO ONE (10:00)
[2021-08-03] MEDS ORDERED: HOME MED LIST COMPLETE! XX SCH (11:00)
[2021-08-03 14:00] VITALS: BP 129/73
[2021-08-03 20:00] VITALS: BP 148/82
[2021-08-03] MEDS ORDERED: RAMELTEON 8 MG TAB (ROZEREM) PO SCH (21:00)
[2021-08-04] MEDS: PIPERACILLIN/TAZOBACTAM SOD 4.5 GM in D5W MINI-BAG PLUS 50 ML IV SCH ×4 (02:17→20:40)
[2021-08-04 05:00] VITALS: BP 142/72
[2021-08-04 06:58] LABS: BASO % 0.1 % (0.0-1.0); EOS # 0.1 10^3/uL (0.0-0.5); EOS % 0.7 % (0.0-3.0); HEMATOCRIT 34.7 % (36.0-47.0); LYMPH # 2.7 10^3/uL (1.5-5.0); LYMPH % 20.4 % (24.0-44.0); MEAN CORPUSCULAR HEMOGLOBIN 26.6 pg (27.0-33.0); MEAN CORPUSCULAR HGB CONC 31.7 g/dl (32.0-36.5); MONO # 0.9 10^3/uL (0.0-0.8); MONO % 6.8 % (2.0-8.0); NEUTROPHILS # 9.4 10^3/uL (1.5-8.5); NEUTROPHILS % 70.8 % (36.0-66.0); PLATELET COUNT, AUTOMATED 204 10^3/uL (150-450); RED BLOOD COUNT 4.13 10^6/uL (4.00-5.40); WHITE BLOOD COUNT 13.3 10^3/uL (4.0-10.0)
[2021-08-04 07:18] LABS: BLOOD UREA NITROGEN 25 MG/DL (7-18); CALCIUM LEVEL 9.2 MG/DL (8.8-10.2); CARBON DIOXIDE LEVEL 30 MEQ/L (21-32); CHLORIDE LEVEL 103 MEQ/L (98-107); GLOMERULAR FILTRATION RATE > 60.0 (>32); GLUCOSE, FASTING 88 MG/DL (70-100); SODIUM LEVEL 141 MEQ/L (136-145)
[2021-08-04] MEDS: TIOTROPIUM INHALER/CAPSULE (SPIRIVA) INH SCH (07:28)
[2021-08-04] MEDS: SYMBICORT 160/4.5MCG INHALER 6GM INH SCH ×2 (07:28→20:08)
[2021-08-04] MEDS: LACTOBACILLUS ACIDOPHILUS CAP (BACID) PO SCH ×2 (08:00→17:20)
[2021-08-04] MEDS: REMEDY PHYTOPLEX Z-GUARD PASTE 113GM TUBE (FROM STOREROOM PRODUCT) TOP SCH ×3 (09:00→20:40)
[2021-08-04] MEDS: POTASSIUM CHLORIDE 10MEQ SR TABLET PO SCH (09:05)
[2021-08-04] MEDS: amLODIPine 5 MG TAB PO SCH (09:05)
[2021-08-04] MEDS: SERTRALINE HCL 25 MG TABLET PO SCH (09:05)
[2021-08-04] MEDS: predniSONE 10 MG TAB PO SCH (09:05)
[2021-08-04] MEDS: EZETIMIBE 10MG TABLET (ZETIA) PO SCH (09:06)
[2021-08-04] MEDS: MAGNESIUM OXIDE 400MG TAB (MAG-OX) PO SCH (09:06)
[2021-08-04] MEDS: APIXABAN 5 MG TAB (ELIQUIS) PO SCH ×2 (09:06→20:38)
[2021-08-04] MEDS: PRAVASTATIN 20 MG TAB PO SCH (09:07)
[2021-08-04] MEDS: CARVedilol 12.5 MG TAB PO SCH ×2 (09:07→20:39)
[2021-08-04] MEDS: OMEPRAZOLE 20MG CAP PO SCH (09:07)
[2021-08-04] MEDS ORDERED: POTASSIUM CHLORIDE 10% LIQ 20 MEQ/15 ML UDC PO ONE (10:15)
[2021-08-04] MEDS ORDERED: guaiFENesin SYRUP 200MG 10ML UDC PO PRN (10:15)
[2021-08-04 10:39] VITALS: BP 142/72
[2021-08-04] MEDS: SUCRALFATE SUSP 1GM/10ML UD PO SCH ×3 (12:09→20:40)
[2021-08-04] MEDS: FUROSEMIDE 40 MG TAB PO SCH ×2 (12:10→17:21)
[2021-08-04 14:00] VITALS: BP 146/78
[2021-08-04] MEDS ORDERED: traZODone 25MG PER 1/2 TABLET PO PRN (14:55)
[2021-08-04] MEDS: POTASSIUM CHLORIDE 10% LIQ 20 MEQ/15 ML UDC PO SCH ×2 (17:20→20:39)
[2021-08-04 20:02] VITALS: BP 137/82
[2021-08-04] MEDS: traZODone 25MG PER 1/2 TABLET PO SCH (20:38)
[2021-08-04] MEDS ORDERED: POTASSIUM CHLORIDE 10% LIQ 20 MEQ/15 ML UDC PO SCH (21:00)
[2021-08-05] MEDS: PIPERACILLIN/TAZOBACTAM SOD 4.5 GM in D5W MINI-BAG PLUS 50 ML IV SCH ×3 (02:10→13:28)
[2021-08-05 05:31] VITALS: BP 132/60
[2021-08-05 06:25] LABS: BLOOD UREA NITROGEN 19 MG/DL (7-18); CALCIUM LEVEL 9.2 MG/DL (8.8-10.2); CARBON DIOXIDE LEVEL 30 MEQ/L (21-32); CHLORIDE LEVEL 105 MEQ/L (98-107); CREATININE FOR GFR 0.92 MG/DL (0.55-1.30); GLOMERULAR FILTRATION RATE > 60.0 (>32); GLUCOSE, FASTING 91 MG/DL (70-100); POTASSIUM SERUM 3.1 MEQ/L (3.5-5.1); SODIUM LEVEL 142 MEQ/L (136-145)
[2021-08-05] MEDS: TIOTROPIUM INHALER/CAPSULE (SPIRIVA) INH SCH (07:13)
[2021-08-05] MEDS: SYMBICORT 160/4.5MCG INHALER 6GM INH SCH ×2 (07:13→20:01)
[2021-08-05] MEDS: SUCRALFATE SUSP 1GM/10ML UD PO SCH ×4 (08:53→21:06)
[2021-08-05] MEDS: OMEPRAZOLE 20MG CAP PO SCH (08:53)
[2021-08-05] MEDS: EZETIMIBE 10MG TABLET (ZETIA) PO SCH (08:53)
[2021-08-05] MEDS: POTASSIUM CHLORIDE 10% LIQ 20 MEQ/15 ML UDC PO SCH ×2 (08:53→21:06)
[2021-08-05] MEDS: APIXABAN 5 MG TAB (ELIQUIS) PO SCH ×2 (08:54→21:06)
[2021-08-05] MEDS: LACTOBACILLUS ACIDOPHILUS CAP (BACID) PO SCH ×2 (08:54→17:14)
[2021-08-05] MEDS: predniSONE 10 MG TAB PO SCH (08:54)
[2021-08-05] MEDS: PRAVASTATIN 20 MG TAB PO SCH (08:54)
[2021-08-05] MEDS: MAGNESIUM OXIDE 400MG TAB (MAG-OX) PO SCH (08:54)
[2021-08-05] MEDS: FUROSEMIDE 20 MG TAB PO SCH ×2 (08:54→17:14)
[2021-08-05] MEDS: SERTRALINE HCL 25 MG TABLET PO SCH (08:54)
[2021-08-05] MEDS: CARVedilol 12.5 MG TAB PO SCH ×2 (08:55→21:09)
[2021-08-05] MEDS: amLODIPine 5 MG TAB PO SCH (08:55)
[2021-08-05] MEDS: KCL 10MEQ/100ML SWI (KRUN) 10 MEQ in IV 1 EA IV SCH ×2 (08:56→11:37)
[2021-08-05] MEDS: REMEDY PHYTOPLEX Z-GUARD PASTE 113GM TUBE (FROM STOREROOM PRODUCT) TOP SCH ×3 (08:56→21:00)
[2021-08-05] MEDS: ACETAMINOPHEN TAB 650MG DOSE (2X325MG) PO PRN ×2 (08:58→21:07)
[2021-08-05 14:00] VITALS: BP 133/72
[2021-08-05 19:31] VITALS: BP 157/87
[2021-08-05] MEDS: traZODone 25MG PER 1/2 TABLET PO SCH (21:06)
[2021-08-06 05:22] VITALS: BP 152/98
[2021-08-06 06:19] LABS: BASO % 0.2 % (0.0-1.0); EOS # 0.1 10^3/uL (0.0-0.5); EOS % 0.7 % (0.0-3.0); HEMATOCRIT 34.7 % (36.0-47.0); LYMPH # 2.7 10^3/uL (1.5-5.0); LYMPH % 24.2 % (24.0-44.0); MEAN CORPUSCULAR HGB CONC 31.7 g/dl (32.0-36.5); MEAN CORPUSCULAR VOLUME 85.3 fl (80.0-96.0); MONO # 0.7 10^3/uL (0.0-0.8); MONO % 5.7 % (2.0-8.0); NEUTROPHILS # 7.7 10^3/uL (1.5-8.5); NEUTROPHILS % 68.2 % (36.0-66.0); PLATELET COUNT, AUTOMATED 189 10^3/uL (150-450); RED BLOOD COUNT 4.07 10^6/uL (4.00-5.40); WHITE BLOOD COUNT 11.3 10^3/uL (4.0-10.0)
[2021-08-06 06:40] LABS: BLOOD UREA NITROGEN 20 MG/DL (7-18); CALCIUM LEVEL 8.4 MG/DL (8.8-10.2); CARBON DIOXIDE LEVEL 29 MEQ/L (21-32); CHLORIDE LEVEL 107 MEQ/L (98-107); CREATININE FOR GFR 0.84 MG/DL (0.55-1.30); GLOMERULAR FILTRATION RATE > 60.0 (>32); GLUCOSE, FASTING 81 MG/DL (70-100); SODIUM LEVEL 141 MEQ/L (136-145)
[2021-08-06] MEDS: SYMBICORT 160/4.5MCG INHALER 6GM INH SCH ×2 (07:21→20:22)
[2021-08-06] MEDS: TIOTROPIUM INHALER/CAPSULE (SPIRIVA) INH SCH (07:21)
[2021-08-06] MEDS: REMEDY PHYTOPLEX Z-GUARD PASTE 113GM TUBE (FROM STOREROOM PRODUCT) TOP SCH ×3 (09:00→20:51)
[2021-08-06] MEDS: PRAVASTATIN 20 MG TAB PO SCH (09:11)
[2021-08-06] MEDS: APIXABAN 5 MG TAB (ELIQUIS) PO SCH ×2 (09:11→20:49)
[2021-08-06] MEDS: MAGNESIUM OXIDE 400MG TAB (MAG-OX) PO SCH (09:11)
[2021-08-06] MEDS: EZETIMIBE 10MG TABLET (ZETIA) PO SCH (09:11)
[2021-08-06] MEDS: FUROSEMIDE 20 MG TAB PO SCH ×2 (09:11→17:42)
[2021-08-06] MEDS: predniSONE 10 MG TAB PO SCH (09:11)
[2021-08-06] MEDS: amLODIPine 5 MG TAB PO SCH (09:12)
[2021-08-06] MEDS: CARVedilol 12.5 MG TAB PO SCH ×2 (09:12→20:49)
[2021-08-06] MEDS: SERTRALINE HCL 25 MG TABLET PO SCH (09:13)
[2021-08-06] MEDS: OMEPRAZOLE 20MG CAP PO SCH (09:13)
[2021-08-06] MEDS: SUCRALFATE SUSP 1GM/10ML UD PO SCH ×4 (09:13→20:47)
[2021-08-06] MEDS: POTASSIUM CHLORIDE 10% LIQ 20 MEQ/15 ML UDC PO SCH ×2 (09:13→20:47)
[2021-08-06] MEDS: LACTOBACILLUS ACIDOPHILUS CAP (BACID) PO SCH ×2 (09:16→17:42)
[2021-08-06 14:00] VITALS: BP 138/74
[2021-08-06] MEDS: ACETAMINOPHEN TAB 650MG DOSE (2X325MG) PO PRN (20:48)
[2021-08-06] MEDS: traZODone 25MG PER 1/2 TABLET PO SCH (20:50)
[2021-08-06 22:00] VITALS: BP 160/82
[2021-08-07] MEDS ORDERED: traZODone 25MG PER 1/2 TABLET PO SCH (02:00)
[2021-08-07 06:30] VITALS: BP 178/98
[2021-08-07] MEDS: CARVedilol 12.5 MG TAB PO SCH (07:04)
[2021-08-07] MEDS: SYMBICORT 160/4.5MCG INHALER 6GM INH SCH ×2 (07:33→20:01)
[2021-08-07] MEDS: TIOTROPIUM INHALER/CAPSULE (SPIRIVA) INH SCH (07:33)
[2021-08-07] MEDS: POTASSIUM CHLORIDE 10% LIQ 20 MEQ/15 ML UDC PO SCH ×2 (08:19→21:34)
[2021-08-07] MEDS: SUCRALFATE SUSP 1GM/10ML UD PO SCH ×4 (08:19→21:34)
[2021-08-07] MEDS: predniSONE 10 MG TAB PO SCH (08:20)
[2021-08-07] MEDS: LACTOBACILLUS ACIDOPHILUS CAP (BACID) PO SCH ×2 (08:20→17:00)
[2021-08-07] MEDS: amLODIPine 5 MG TAB PO SCH (08:20)
[2021-08-07] MEDS: PRAVASTATIN 20 MG TAB PO SCH (08:20)
[2021-08-07] MEDS: APIXABAN 5 MG TAB (ELIQUIS) PO SCH ×2 (08:20→21:35)
[2021-08-07] MEDS: OMEPRAZOLE 20MG CAP PO SCH (08:20)
[2021-08-07] MEDS: FUROSEMIDE 20 MG TAB PO SCH ×2 (08:21→17:00)
[2021-08-07] MEDS: MAGNESIUM OXIDE 400MG TAB (MAG-OX) PO SCH (08:21)
[2021-08-07] MEDS: REMEDY PHYTOPLEX Z-GUARD PASTE 113GM TUBE (FROM STOREROOM PRODUCT) TOP SCH ×3 (08:21→21:00)
[2021-08-07] MEDS: EZETIMIBE 10MG TABLET (ZETIA) PO SCH (08:23)
[2021-08-07 08:24] LABS: BLOOD UREA NITROGEN 19 MG/DL (7-18); CALCIUM LEVEL 9.5 MG/DL (8.8-10.2); CARBON DIOXIDE LEVEL 26 MEQ/L (21-32); CHLORIDE LEVEL 110 MEQ/L (98-107); GLOMERULAR FILTRATION RATE > 60.0 (>32); GLUCOSE, FASTING 129 MG/DL (70-100); POTASSIUM SERUM 3.7 MEQ/L (3.5-5.1); SODIUM LEVEL 144 MEQ/L (136-145)
[2021-08-07] MEDS: METOPROLOL TART 25 MG TABLET PO SCH ×3 (12:40→23:06)
[2021-08-07 16:00] VITALS: BP 165/74
[2021-08-07 19:17] VITALS: BP 138/84
[2021-08-07] MEDS ORDERED: diphenhydrAMINE 25MG CAP PO PRN (19:20)
[2021-08-07] MEDS: SERTRALINE HCL 25 MG TABLET PO SCH (21:35)
[2021-08-07] MEDS: ACETAMINOPHEN TAB 650MG DOSE (2X325MG) PO PRN (23:06)
[2021-08-08 05:16] VITALS: BP 142/78
[2021-08-08] MEDS: METOPROLOL TART 25 MG TABLET PO SCH ×3 (05:27→17:41)
[2021-08-08 07:12] LABS: BLOOD UREA NITROGEN 19 MG/DL (7-18); CARBON DIOXIDE LEVEL 27 MEQ/L (21-32); CHLORIDE LEVEL 110 MEQ/L (98-107); CREATININE FOR GFR 0.93 MG/DL (0.55-1.30); GLOMERULAR FILTRATION RATE > 60.0 (>32); GLUCOSE, FASTING 94 MG/DL (70-100); POTASSIUM SERUM 4.2 MEQ/L (3.5-5.1); SODIUM LEVEL 144 MEQ/L (136-145)
[2021-08-08] MEDS: SYMBICORT 160/4.5MCG INHALER 6GM INH SCH ×2 (07:21→19:34)
[2021-08-08] MEDS: TIOTROPIUM INHALER/CAPSULE (SPIRIVA) INH SCH (07:21)
[2021-08-08] MEDS: REMEDY PHYTOPLEX Z-GUARD PASTE 113GM TUBE (FROM STOREROOM PRODUCT) TOP SCH ×3 (09:00→21:00)
[2021-08-08] MEDS: predniSONE 10 MG TAB PO SCH (09:00)
[2021-08-08] MEDS: APIXABAN 5 MG TAB (ELIQUIS) PO SCH ×2 (09:00→20:59)
[2021-08-08] MEDS: SUCRALFATE SUSP 1GM/10ML UD PO SCH ×4 (09:00→20:58)
[2021-08-08] MEDS: LACTOBACILLUS ACIDOPHILUS CAP (BACID) PO SCH ×2 (09:00→17:42)
[2021-08-08] MEDS: amLODIPine 5 MG TAB PO SCH (09:01)
[2021-08-08] MEDS: MAGNESIUM OXIDE 400MG TAB (MAG-OX) PO SCH (09:01)
[2021-08-08] MEDS: FUROSEMIDE 20 MG TAB PO SCH ×2 (09:01→17:42)
[2021-08-08] MEDS: POTASSIUM CHLORIDE 10% LIQ 20 MEQ/15 ML UDC PO SCH ×2 (09:02→20:58)
[2021-08-08] MEDS: OMEPRAZOLE 20MG CAP PO SCH (09:02)
[2021-08-08] MEDS: EZETIMIBE 10MG TABLET (ZETIA) PO SCH (09:02)
[2021-08-08] MEDS: PRAVASTATIN 20 MG TAB PO SCH (09:02)
[2021-08-08 14:00] VITALS: BP 165/85
[2021-08-08 17:41] VITALS: BP 149/85
[2021-08-08 18:45] VITALS: BP 161/85
[2021-08-08] MEDS ORDERED: METOPROLOL TART 50 MG TAB PO ONE (19:15)
[2021-08-08 19:33] VITALS: BP 140/62
[2021-08-08 19:39] VITALS: BP 140/62
[2021-08-08] MEDS: SERTRALINE HCL 25 MG TABLET PO SCH (20:59)
[2021-08-08] MEDS: ACETAMINOPHEN TAB 650MG DOSE (2X325MG) PO PRN (20:59)
== END 2021-08-08 21:30 | disposition short-term general hospital (02) | DRG 70 ==
LOC: M PM&R 15:30
PROVIDERS: ADMIT Physical Medicine & Rehabilitation; ATTEND Physical Medicine & Rehabilitation
DX: G93.41 Metabolic encephalopathy (principal); J69.0 Pneumonitis due to inhalation of food and vomit; I50.32 Chronic diastolic (congestive) heart failure; R13.10 Dysphagia, unspecified; I48.91 Unspecified atrial fibrillation; J44.9 Chronic obstructive pulmonary disease, unspecified; I11.0 Hypertensive heart disease with heart failure; K22.70 Barrett's esophagus without dysplasia; K21.9 Gastro-esophageal reflux disease without esophagitis; E87.6 Hypokalemia; R53.1 Weakness; Z74.09 Other reduced mobility; Z74.1 Need for assistance with personal care; R58 Hemorrhage, not elsewhere classified; Z90.49 Acquired absence of other specified parts of digestive tract; E78.5 Hyperlipidemia, unspecified; G47.00 Insomnia, unspecified; Z79.01 Long term (current) use of anticoagulants; Z79.52 Long term (current) use of systemic steroids; Z79.899 Other long term (current) drug therapy; Z88.8 Allergy status to other drugs, medicaments and biological substances; Z86.16 Personal history of COVID-19; Z79.2 Long term (current) use of antibiotics

== ENCOUNTER 2021-08-08 21:21 | Inpatient (IN) | payer MEDICARE, BC ==
[~2021-08-08] VITALS: Ht 147.3 cm; Wt 58.0 kg
[2021-08-08] MEDS ORDERED: ACETAMINOPHEN TAB 650MG DOSE (2X325MG) PO PRN (21:25)
[2021-08-08 21:32] VITALS: BP 171/82
[2021-08-08] MEDS ORDERED: HOME MED LIST COMPLETE! XX SCH (21:35)
[2021-08-08] MEDS ORDERED: ALBUTEROL SULFATE 2.5 MG/0.5 ML INH NEB SOLN INH PRN (21:50)
[2021-08-08] MEDS: METOPROLOL 5 MG/5 ML VIAL IV SCH ×3 (22:20→22:51)
[2021-08-08 22:32] LABS: HEMATOCRIT 39.1 % (36.0-47.0); HEMOGLOBIN 12.6 g/dl (12.0-15.5); MEAN CORPUSCULAR HEMOGLOBIN 27.5 pg (27.0-33.0); MEAN CORPUSCULAR HGB CONC 32.2 g/dl (32.0-36.5); MEAN CORPUSCULAR VOLUME 85.4 fl (80.0-96.0); PLATELET COUNT, AUTOMATED 253 10^3/uL (150-450); RED BLOOD COUNT 4.58 10^6/uL (4.00-5.40); WHITE BLOOD COUNT 15.1 10^3/uL (4.0-10.0)
[2021-08-08 23:25] LABS: CALCIUM LEVEL 9.3 MG/DL (8.8-10.2); CREATININE FOR GFR 0.97 MG/DL (0.55-1.30); GLOMERULAR FILTRATION RATE 58.4 (>32); MAGNESIUM LEVEL 1.9 MG/DL (1.8-2.4); POTASSIUM SERUM 5.3 MEQ/L (3.5-5.1)
[2021-08-09] VITALS: BP 143/76
[2021-08-09] MEDS: METOPROLOL TART 25 MG TABLET PO SCH ×2 (01:10→07:33)
[2021-08-09 04:00] VITALS: BP 165/85
[2021-08-09] MEDS: ALPRAZolam 0.25 MG TAB PO PRN (04:00)
[2021-08-09] MEDS: TIOTROPIUM INHALER/CAPSULE (SPIRIVA) INH SCH (07:23)
[2021-08-09] MEDS: SYMBICORT 160/4.5MCG INHALER 6GM INH SCH ×2 (07:23→20:17)
[2021-08-09 07:29] LABS: HEMATOCRIT 35.4 % (36.0-47.0); HEMOGLOBIN 11.2 g/dl (12.0-15.5); MEAN CORPUSCULAR HGB CONC 31.6 g/dl (32.0-36.5); MEAN CORPUSCULAR VOLUME 85.3 fl (80.0-96.0); PLATELET COUNT, AUTOMATED 220 10^3/uL (150-450); RED BLOOD COUNT 4.15 10^6/uL (4.00-5.40); WHITE BLOOD COUNT 12.9 10^3/uL (4.0-10.0)
[2021-08-09 08:05] LABS: BLOOD UREA NITROGEN 17 MG/DL (7-18); CALCIUM LEVEL 9.1 MG/DL (8.8-10.2); CARBON DIOXIDE LEVEL 28 MEQ/L (21-32); CHLORIDE LEVEL 108 MEQ/L (98-107); CREATININE FOR GFR 0.74 MG/DL (0.55-1.30); GLOMERULAR FILTRATION RATE > 60.0 (>32); GLUCOSE, FASTING 87 MG/DL (70-100); MAGNESIUM LEVEL 1.9 MG/DL (1.8-2.4); POTASSIUM SERUM 3.7 MEQ/L (3.5-5.1); SODIUM LEVEL 143 MEQ/L (136-145)
[2021-08-09] MEDS: FUROSEMIDE 40 MG TAB PO SCH ×2 (08:37→17:49)
[2021-08-09] MEDS: amLODIPine 5 MG TAB PO SCH (08:37)
[2021-08-09] MEDS: PRAVASTATIN 20 MG TAB PO SCH (08:37)
[2021-08-09] MEDS: LACTOBACILLUS ACIDOPHILUS CAP (BACID) PO SCH ×2 (08:37→17:49)
[2021-08-09] MEDS: EZETIMIBE 10MG TABLET (ZETIA) PO SCH (08:37)
[2021-08-09] MEDS: APIXABAN 5 MG TAB (ELIQUIS) PO SCH ×2 (08:38→20:03)
[2021-08-09] MEDS: OMEPRAZOLE 20MG CAP PO SCH (08:38)
[2021-08-09] MEDS ORDERED: POTASSIUM CHLORIDE 10MEQ SR TABLET PO SCH (09:00)
[2021-08-09 11:53] VITALS: BP 154/85
[2021-08-09] MEDS: METOPROLOL TART 50 MG TAB PO SCH ×3 (12:25→23:58)
[2021-08-09 16:22] VITALS: BP 135/71
[2021-08-09 20:00] VITALS: BP 133/80
[2021-08-09] MEDS ORDERED: SERTRALINE HCL 25 MG TABLET PO SCH (21:00)
[2021-08-10] VITALS: BP 150/86
[2021-08-10 00:34] LABS: APPEARANCE, URINE CLEAR (CLEAR); BACTERIA, URINE AUTO NEGATIVE (NEGATIVE); BILIRUBIN, URINE AUTO NEGATIVE (NEGATIVE); BLOOD, URINE BLOOD NEGATIVE (NEGATIVE); COLOR, URINE STRAW (YELLOW); GLUCOSE, URINE (UA) AUTO NEGATIVE (NEGATIVE); KETONE, URINE AUTO NEGATIVE (NEGATIVE); LEUKOCYTE ESTERASE, URINE AUTO NEGATIVE (NEGATIVE); MUCUS, URINE SMALL (NEGATIVE); NITRITE, URINE AUTO NEGATIVE (NEGATIVE); PROTEIN, URINE AUTO NEGATIVE (NEGATIVE); RBC, URINE AUTO 1 /HPF (0-3); SPECIFIC GRAVITY URINE AUTO 1.008 (1.002-1.035); SQUAMOUS EPITHELIAL CELL UR AU 0 /HPF (0-6); UROBILINOGEN, URINE AUTO 0.2 mg/dL (0.0-2.0); WBC, URINE AUTO 0 /HPF (0-3)
[2021-08-10] MEDS: ALPRAZolam 0.25 MG TAB PO PRN (02:31)
[2021-08-10 04:00] VITALS: BP 129/77
[2021-08-10 05:33] LABS: HEMATOCRIT 35.8 % (36.0-47.0); HEMOGLOBIN 11.3 g/dl (12.0-15.5); MEAN CORPUSCULAR HEMOGLOBIN 27.2 pg (27.0-33.0); MEAN CORPUSCULAR HGB CONC 31.6 g/dl (32.0-36.5); MEAN CORPUSCULAR VOLUME 86.3 fl (80.0-96.0); PLATELET COUNT, AUTOMATED 234 10^3/uL (150-450); RED BLOOD COUNT 4.15 10^6/uL (4.00-5.40); WHITE BLOOD COUNT 10.7 10^3/uL (4.0-10.0)
[2021-08-10 05:40] VITALS: BP 140/82
[2021-08-10] MEDS: METOPROLOL TART 50 MG TAB PO SCH ×2 (05:50→12:46)
[2021-08-10 05:51] LABS: BLOOD UREA NITROGEN 21 MG/DL (7-18); CALCIUM LEVEL 8.6 MG/DL (8.8-10.2); CARBON DIOXIDE LEVEL 33 MEQ/L (21-32); CHLORIDE LEVEL 103 MEQ/L (98-107); CREATININE FOR GFR 0.72 MG/DL (0.55-1.30); GLOMERULAR FILTRATION RATE > 60.0 (>32); GLUCOSE, FASTING 87 MG/DL (70-100); POTASSIUM SERUM 3.3 MEQ/L (3.5-5.1); SODIUM LEVEL 142 MEQ/L (136-145)
[2021-08-10 07:45] VITALS: BP 135/81
[2021-08-10] MEDS: LACTOBACILLUS ACIDOPHILUS CAP (BACID) PO SCH (08:26)
[2021-08-10] MEDS: amLODIPine 5 MG TAB PO SCH (08:26)
[2021-08-10] MEDS: FUROSEMIDE 40 MG TAB PO SCH (08:27)
[2021-08-10] MEDS: OMEPRAZOLE 20MG CAP PO SCH (08:27)
[2021-08-10] MEDS: EZETIMIBE 10MG TABLET (ZETIA) PO SCH (08:27)
[2021-08-10] MEDS: PRAVASTATIN 20 MG TAB PO SCH (08:27)
[2021-08-10] MEDS: APIXABAN 5 MG TAB (ELIQUIS) PO SCH (08:27)
[2021-08-10] MEDS ORDERED: POTASSIUM CHLORIDE 10MEQ SR TABLET PO SCH (09:00)
[2021-08-10] MEDS: TIOTROPIUM INHALER/CAPSULE (SPIRIVA) INH SCH (11:25)
[2021-08-10] MEDS: SYMBICORT 160/4.5MCG INHALER 6GM INH SCH (11:26)
[2021-08-10] MEDS ORDERED: LOPR1TAB6 PO ×2 (11:51→14:29)
[2021-08-10] MEDS ORDERED: POTASSIUM CHLORIDE 10MEQ SR TABLET PO ONE (12:00)
[2021-08-10 12:30] VITALS: BP 125/71
[2021-08-10 12:46] VITALS: BP 125/71
[2021-08-10] MEDS ORDERED: FURO40TA2 PO (14:28)
[2021-08-10] MEDS ORDERED: SYMB16INH INH (14:28)
[2021-08-10] MEDS ORDERED: SERT25TA21 PO (19:06)
[2021-08-10] MEDS ORDERED: HALO5TAB33 PO (19:06)
[2021-08-10] MEDS ORDERED: HALO1TAB19 PO (19:06)
[2021-08-10] MEDS ORDERED: ALBU2.5V10 INH (19:06)
[2021-08-10] MEDS ORDERED: RISATAB3 PO (19:06)
== END 2021-08-10 16:27 | disposition home or self-care (01) | DRG 309 ==
LOC: INTOOBSV 21:21 → M PCU 21:21 → OBSVTOIN 08-09 11:55
PROVIDERS: ADMIT Family Medicine; ATTEND Internal Medicine
DX: I48.91 Unspecified atrial fibrillation (principal); I50.32 Chronic diastolic (congestive) heart failure; I11.0 Hypertensive heart disease with heart failure; J44.9 Chronic obstructive pulmonary disease, unspecified; E87.5 Hyperkalemia; K21.9 Gastro-esophageal reflux disease without esophagitis; F41.8 Other specified anxiety disorders; E78.5 Hyperlipidemia, unspecified; F32.A Depression, unspecified; K22.70 Barrett's esophagus without dysplasia; Z86.16 Personal history of COVID-19; E87.6 Hypokalemia; Z79.899 Other long term (current) drug therapy; Z88.8 Allergy status to other drugs, medicaments and biological substances; R41.0 Disorientation, unspecified

== ENCOUNTER 2021-08-21 21:31 | Emergency (ER) | payer MEDICARE, BC ==
[~2021-08-21] VITALS: Ht 147.3 cm; Wt 58.2 kg
[~2021-08-21 21:31] MED LIST changes: +LOPR1TAB6 PO
[2021-08-21 22:25] LABS: BASO % 0.4 % (0.0-1.0); EOS # 0.1 10^3/uL (0.0-0.5); EOS % 0.8 % (0.0-3.0); HEMATOCRIT 32.7 % (36.0-47.0); HEMOGLOBIN 10.4 g/dl (12.0-15.5); LYMPH # 2.2 10^3/uL (1.5-5.0); LYMPH % 20.3 % (24.0-44.0); MEAN CORPUSCULAR HEMOGLOBIN 27.1 pg (27.0-33.0); MEAN CORPUSCULAR HGB CONC 31.8 g/dl (32.0-36.5); MEAN CORPUSCULAR VOLUME 85.2 fl (80.0-96.0); MONO # 0.9 10^3/uL (0.0-0.8); MONO % 8.2 % (2.0-8.0); NEUTROPHILS # 7.5 10^3/uL (1.5-8.5); NEUTROPHILS % 68.8 % (36.0-66.0); PLATELET COUNT, AUTOMATED 227 10^3/uL (150-450); RED BLOOD COUNT 3.84 10^6/uL (4.00-5.40); WHITE BLOOD COUNT 10.9 10^3/uL (4.0-10.0)
[2021-08-21 22:36] LABS: INR 1.11; PROTHROMBIN TIME 14.7 SECONDS (12.7-14.5)
[2021-08-21 22:52] LABS: CK-MB VALUE MASS 1.1 NG/ML (<3.6)
[2021-08-21 23:00] LABS: ALBUMIN 2.9 GM/DL (3.2-5.2); ALT/SGPT 24 U/L (12-78); BILIRUBIN,DIRECT 0.1 MG/DL (0.0-0.2); BILIRUBIN,TOTAL 0.4 MG/DL (0.2-1.0); BLOOD UREA NITROGEN 24 MG/DL (7-18); CALCIUM LEVEL 8.8 MG/DL (8.8-10.2); CARBON DIOXIDE LEVEL 29 MEQ/L (21-32); CHLORIDE LEVEL 102 MEQ/L (98-107); GLOMERULAR FILTRATION RATE > 60.0 (>32); GLUCOSE, FASTING 121 MG/DL (70-100); NT-PRO BNP 1726 PG/ML (<450); SODIUM LEVEL 140 MEQ/L (136-145); TOTAL PROTEIN 6.7 GM/DL (6.4-8.2)
[2021-08-21] MEDS ORDERED: DIGOXIN INJ 0.5 MG/2 ML AMP (J1160) IV ONE (23:10)
[2021-08-21] MEDS ORDERED: METOPROLOL TART 50 MG TAB PO ONE (23:10)
[2021-08-21] MEDS ORDERED: ISOVUE-370 76% 100ML VIAL As Ordered ONE (23:12)
[2021-08-21] MEDS: METOPROLOL 5 MG/5 ML VIAL IV SCH ×3 (23:45→23:52)
[2021-08-22] MEDS ORDERED: FUROSEMIDE 100MG/10ML VIAL (J1940) IV ONE (00:25)
[2021-08-22] MEDS ORDERED: POTASSIUM CHLORIDE 10MEQ SR TABLET PO ONE (00:25)
[2021-08-22] MEDS ORDERED: DIGOXIN 0.125 MG TAB PO ONE (00:25)
[2021-08-22 00:33] VITALS: BP 168/77
[2021-08-22] MEDS: METOPROLOL 5 MG/5 ML VIAL IV SCH (00:33)
[2021-08-22] MEDS ORDERED: IPRATROPIUM 0.5MG/ALBUTEROL 2.5MG INH SOL UD 3ML (DUONEB) NEB ONE (01:00)
[2021-08-22 02:23] LABS: ABG BASE EXCESS 3.2 (-2.0-2.0); ABG HCO3 28.7 MEQ/L (22.0-26.0); ABG O2 SATURATION 93.6 % (95.0-99.0); ABG PARTIAL PRESSURE CO2 47.8 mmHg (35.0-45.0); ABG PARTIAL PRESSURE O2 70.4 mmHg (75.0-100.0); ABG STANDARD HCO3 27.2 MEQ/L (22.0-26.0); ABG TOTAL CO2 30.1 MEQ/L (23.0-31.0); ABG pH (ARTERIAL) 7.396 UNITS (7.350-7.450)
[2021-08-22 06:00] VITALS: BP 119/64
[2021-08-22] MEDS ORDERED: DIGO0.123 PO (06:12)
== END 2021-08-22 06:38 | disposition home or self-care (01) ==
LOC: M ED 21:31
DX: I50.9 Heart failure, unspecified (principal); I48.91 Unspecified atrial fibrillation; R91.8 Other nonspecific abnormal finding of lung field; J44.9 Chronic obstructive pulmonary disease, unspecified; K21.9 Gastro-esophageal reflux disease without esophagitis; Z79.01 Long term (current) use of anticoagulants; Z79.899 Other long term (current) drug therapy; Z88.8 Allergy status to other drugs, medicaments and biological substances
CPT/HCPCS: 36600; 71045; 71275; 80048; 80076; 82550; 82553; 82803; 83880; 84443; 84484; 85025; 85610; 87040; 87486; 87581; 87633; 87798; 93005; 93041; 94640; 94760; 96374; 96375; 99285; J1160; J1940; Q9967